=== PATIENT | female | born 1995 | race Caucasian/White ===

== ENCOUNTER 2023-01-03 02:02 | Outpatient (CLI) | payer MEDICAID, SELFPAY ==
[2023-01-03 02:36] VITALS: RESP 18
[2023-01-03 02:37] VITALS: BP 130/76; PULSE 104
[2023-01-03 02:41] VITALS: TEMP 35.8
[2023-01-03 02:46] VITALS: BMI 32.2
[2023-01-03] MEDS: acetaminophen 325 mg Tablet 650 MG PO (02:52)
[2023-01-03 03:11] VITALS: BP 137/82; PULSE 102
[2023-01-03 03:11] LABS: Amphetamines Screen Urine Positive (Negative); Barbiturates Screen Urine Negative (Negative); Benzodiazepines Screen Urine Negative (Negative); Cocaine Screen Urine Negative (Negative); Opiate Screen Urine Negative (Negative); PCP Screen Urine Negative (Negative); THC Screen Urine Negative (Negative)
[2023-01-03 03:12] LABS: Add Urine Culture? No; Bilirubin Urine Neg (Negative); Blood Urine Neg (Negative); Glucose Urine UA Norm (Normal); Ketones Urine Negative (Negative); Leukocyte Esterase Urine Negative (Negative); Mucus Urine 1+ /hpf; Nitrate Urine Negative (Negative); Protein Urine Neg (Negative); Squamous Epithelial Cell Urine 0-4 /hpf (0-5); Urine Appearance Clear (CLEAR); Urine Color Yellow (Yellow); Urobilinogen Urine Neg (Negative); pH Urine 6 (5-7)
[2023-01-03 03:23] VITALS: BP 140/86; PULSE 101
[2023-01-03 03:25] VITALS: BP 140/86; PULSE 101; RESP 16; TEMP 36.6
--- NOTE | 2023-01-03 03:31 | PC.NURSE ---
This nurse use the doppler to find FHT on pt, the FHT were 160 on 01/03/23 @0230. This nurse used doppler again to garbage pick up man FHT on 01/03/23 @ 0323 and they were 140.
== END 2023-01-03 03:25 | disposition home or self-care (01) ==
LOC: OPOB 02:30 → OBGYN 02:31
PROVIDERS: Visit Provider Family Medicine
DX: O26.899 Other specified pregnancy related conditions, unspecified trimester (principal); R10.9 Unspecified abdominal pain; Z3A.00 Weeks of gestation of pregnancy not specified
CPT/HCPCS: 80306; 81001; 99211

== ENCOUNTER 2023-02-23 01:37 | Outpatient (CLI) | payer MEDICAID, SELFPAY ==
[2023-02-23 01:37] VITALS: BMI 36.3
[2023-02-23 01:50] VITALS: BP 136/81; PULSE 108; TEMP 35.8
[2023-02-23 01:59] VITALS: RESP 17
[2023-02-23 02:11] VITALS: BP 138/82; PULSE 106
[2023-02-23 02:22] LABS: Amphetamines Screen Urine Negative (Negative); Barbiturates Screen Urine Negative (Negative); Benzodiazepines Screen Urine Negative (Negative); Cocaine Screen Urine Negative (Negative); Opiate Screen Urine Negative (Negative); PCP Screen Urine Negative (Negative); THC Screen Urine Negative (Negative)
--- NOTE | 2023-02-23 02:31 | USR_ITS ---
PROCEDURE INFORMATION: Exam: US , Limited Exam date and time: 02/23/2023 2:44 AM Age: 27 years old Clinical indication: Lmp or gestational age (in weeks): 30w 3d; Antepartum complications; Other: G3-p2, both prior pregnancies complicated by placenta previa, requiring . No vaginal bleeding at time of this exam, but patient admits to some spotting 2 weeks ago. ; Prior surgery; Surgery date: 6+ months; Additional info: Possible placenta previa LABS AND CLINICAL REPORTS: Last menstrual period start date: 07/24/2022 Gestational age (Established): 30 w 4 d Estimated due date (Established): 04/30/2023 TECHNIQUE: Imaging protocol: Real-time ultrasound of the maternal uterus with image documentation. Exam focused on the clinical indication. COMPARISON: No relevant prior studies available. FINDINGS: Single living fetus in cephalic position. heart activity documented by the technologist, 164 bpm. Posterior/fundal placenta. No definite placenta previa or other visible placental abnormality on the provided images. Amniotic fluid volume appears within normal limits for gestation, DARIEL 15.1 cm. Cervical length was estimated with transabdominal scanning, measuring approximately 3.2 cm. No definite cervical canal dilation or fluid on the provided images. measurements were not obtained at this time. Evaluation of anatomy was not performed at this time. No visible maternal adnexal abnormality. The urinary bladder was not completely evaluated/imaged at this time. US/US OB limited [id number] IMPRESSION: 1. Single living intrauterine fetus, details above. 2. Posterior/fundal placenta. 3. No definite placenta previa or other visible placental abnormality on the provided images. 4. Amniotic fluid volume appears within normal limits for gestation, DARIEL 15.1 cm. 5. Other details discussed above.
[2023-02-23 02:33] VITALS: BP 117/65; PULSE 105
[2023-02-23 02:40] LABS: Add Urine Culture? No; Bacteria Urine TRACE /hpf; Bilirubin Urine Neg (Negative); Blood Urine Neg (Negative); Glucose Urine UA Norm (Normal); Ketones Urine Negative (Negative); Leukocyte Esterase Urine Negative (Negative); Nitrate Urine Negative (Negative); Protein Urine Neg (Negative); RBC Urine 0-4 /hpf (0-2); Specific Gravity, Urine 1.015 (1.005-1.030); Squamous Epithelial Cell Urine 0-4 /hpf (0-5); Urine Appearance Clear (CLEAR); Urine Color Yellow (Yellow); Urobilinogen Urine Norm (Negative); WBC Urine 0-4 /hpf (0-5); pH Urine 7 (5-7)
[2023-02-23] MEDS: acetaminophen 500 mg Tablet 1000 MG PO (02:43)
[2023-02-23 03:23] VITALS: BP 123/76; PULSE 102
[2023-02-23 03:59] VITALS: BP 123/76; PULSE 102; RESP 16; TEMP 36.6
== END 2023-02-23 04:00 | disposition home or self-care (01) ==
LOC: OPOB 01:46 → OBGYN 03:24
PROVIDERS: Visit Provider Family Medicine
DX: O47.9 False labor, unspecified (principal); Z3A.30 30 weeks gestation of pregnancy
CPT/HCPCS: 59025; 76815; 80306; 81001; 99211

== ENCOUNTER 2023-03-13 20:05 | Outpatient (CLI) | payer MEDICAID, SELFPAY ==
[2023-03-13 20:10] VITALS: BMI 36.0
[2023-03-13 20:25] VITALS: BP 128/71; PULSE 102
[2023-03-13 20:30] VITALS: RESP 16; TEMP 36.2
[2023-03-13 20:45] VITALS: BP 122/72; PULSE 100
[2023-03-13 21:00] LABS: Blood Urine Neg (Negative); Glucose Urine UA Norm (Normal); Ketones Urine Negative (Negative); Nitrate Urine Negative (Negative); Protein Urine Neg (Negative); Specific Gravity, Urine 1.015 (1.005-1.030); Urine Appearance Clear (CLEAR); Urine Color Yellow (Yellow); pH Urine 7 (5-7)
[2023-03-13 21:01] LABS: Add Urine Culture? No; Bacteria Urine TRACE /hpf; Bilirubin Urine Neg (Negative); Leukocyte Esterase Urine Negative (Negative); Urobilinogen Urine Neg (Negative)
--- NOTE | 2023-03-13 21:20 | USR_ITS ---
PROCEDURE INFORMATION: Exam: US Biophysical Profile Without Non-Stress Test Exam date and time: 03/13/2023 9:36 PM Age: 27 years old Clinical indication: Other: Mcleod moved vigorously. Patient is seen for n+v, no vag bleed. ; Additional info: Nausea and vomiting TECHNIQUE: Imaging protocol: US biophysical profile without non-stress testing. COMPARISON: US OB limited [id number] 02/23/2023 2:44 AM FINDINGS: heart rate: 129 bpm presentation: Cephalic Placenta: Fundal grade 1 placenta. No findings of placenta previa. Amniotic fluid: Amniotic fluid volume is normal. Amniotic fluid index: DARIEL is 14 cm. BIOPHYSICAL PROFILE: breathing movement (BPP): 2/2 body movement (BPP): 2/2 tone (BPP): 2/2 Amniotic fluid (BPP): 2/2 Biophysical profile score (BPP): 8/8 MATERNAL ANATOMY: Cervix: Cervical length measures 4.4 cm. US/US OB BPP wo NST [id number] IMPRESSION: Biophysical profile score is 8/8.
[2023-03-13 21:27] VITALS: BP 132/78; PULSE 102
[2023-03-13 22:21] VITALS: BP 132/78; PULSE 102; RESP 16; TEMP 36.2
== END 2023-03-13 22:21 | disposition home or self-care (01) ==
LOC: OPOB 20:20 → OBGYN 20:23
PROVIDERS: Visit Provider Obstetrics & Gynecology
DX: O46.90 Antepartum hemorrhage, unspecified, unspecified trimester (principal); O26.899 Other specified pregnancy related conditions, unspecified trimester; R11.10 Vomiting, unspecified; Z3A.00 Weeks of gestation of pregnancy not specified
CPT/HCPCS: 59025; 76819; 81001; 99211

== ENCOUNTER 2023-04-09 21:32 | Outpatient (CLI) | payer MEDICAID, SELFPAY ==
[2023-04-09] VITALS (11 sets, daily range): BP systolic 133–169; BP diastolic 80–95; PULSE 90–109; RESP 15–16; TEMP 35.9; BMI 35.6
[2023-04-09 22:30] LABS: Add Urine Microscopic? NO; Charge for UA Resulting for Rev
[2023-04-09 22:32] LABS: Basophils % 0.4 %; Eosinophils # 0.2 10^3/uL (0.0-0.8); Eosinophils % 1.4 %; Hematocrit 37.7 % (37.0-47.0); Hemoglobin 12.2 g/dL (11.5-15.3); Lymphocytes # 2.3 10^3/uL (0.8-4.8); Lymphocytes % 20.7 %; Mean Corpuscular HGB Conc 32.4 g/dL (30.0-36.0); Mean Corpuscular Hemoglobin 28.3 pg (28.0-34.0); Mean Corpuscular Volume 87.5 fl (81-99); Mean Platelet Volume 10.4 fL (7.4-10.4); Monocytes # 0.8 10^3/uL (0.2-0.9); Monocytes % 7.2 %; Neutrophils # 7.48 10^3/uL (1.8-7.7); Neutrophils % 67.9 %; Nucleated Red Blood Cells % 0 %; Platelet Count 175 10^3/cmm (130-400); Red Blood Count 4.31 10^6/uL (4.1-5.3); Red Cell Distribution Width 15.2 % (12.1-15.1)
[2023-04-09 22:41] LABS: Protein Urine Neg (Negative); Urine Appearance Clear (CLEAR); Urine Color Yellow (Yellow); pH Urine 7 (5-7)
[2023-04-09 22:42] LABS: Bilirubin Urine Neg (Negative); Blood Urine Neg (Negative); Glucose Urine UA Norm (Normal); Ketones Urine Negative (Negative); Leukocyte Esterase Urine Negative (Negative); Nitrate Urine Negative (Negative); Urobilinogen Urine Norm (Negative)
[2023-04-09 22:55] LABS: Alanine Aminotransferase 11 U/L (0-33); Albumin Level 3.4 g/dL (3.5-5.2); Alkaline Phosphatase 140 U/L (35-105); Anion Gap 16.1 (5-19); Aspartate Amino Transferase 21 U/L (0-32); Blood Urea Nitrogen 5 mg/dL (6-20); Calcium 8.9 mg/dL (8.5-10.5); Carbon Dioxide 22 mmol/L (22-29); Chloride 101 mmol/L (98-107); Globulin 3.3 g/dL (1.3-4.6); Glomerular Filtration Rate 190.1 mL/min (90-130); Glucose 85 mg/dL (65-115); Osmolality Calculated 277 mOsm/kg (285-295); Potassium 4.1 mmol/L (3.5-5.1); Sodium 135 mmol/L (136-145); Total Bilirubin 0.2 mg/dL (0.15-1.2); Total Protein 6.7 g/dL (6.6-8.7); Uric Acid 4.6 mg/dL (2.4-5.7)
[2023-04-09 23:01] LABS: Urine Creatinine 61 mg/dL (28-217); Urine Protein Random 7 mg/dL
[2023-04-09 23:05] LABS: Amphetamines Screen Urine Negative (Negative); Barbiturates Screen Urine Negative (Negative); Benzodiazepines Screen Urine Negative (Negative); Cocaine Screen Urine Negative (Negative); Opiate Screen Urine Negative (Negative); PCP Screen Urine Negative (Negative); THC Screen Urine Negative (Negative)
[2023-04-09 23:06] LABS: UPRO/UCREAT Ratio 0.11 mg/mg CR
== END 2023-04-09 23:27 | disposition home or self-care (01) ==
LOC: OPOB 21:33 → OBGYN 21:34
PROVIDERS: Visit Provider Family Medicine
DX: O47.9 False labor, unspecified (principal); Z3A.00 Weeks of gestation of pregnancy not specified
CPT/HCPCS: 36415; 59025; 80053; 80306; 81003; 82570; 84156; 84550; 85025; 99211

== ENCOUNTER 2023-04-21 21:45 | Outpatient (CLI) | payer MEDICAID, SELFPAY ==
[2023-04-21 21:55] VITALS: BMI 37.0
[2023-04-21 22:14] VITALS: TEMP 35.9
[2023-04-21 22:15] VITALS: BP 134/87; PULSE 93
[2023-04-21 22:40] VITALS: BP 134/87; PULSE 93; RESP 16; TEMP 36.1
[2023-04-21 23:33] LABS: Nitrazine Paper, PH Negative
== END 2023-04-21 22:45 | disposition home or self-care (01) ==
LOC: OPOB 21:46 → OBGYN 21:47
PROVIDERS: Visit Provider Obstetrics & Gynecology
DX: O26.899 Other specified pregnancy related conditions, unspecified trimester (principal); R10.9 Unspecified abdominal pain; Z3A.00 Weeks of gestation of pregnancy not specified
CPT/HCPCS: 59025; 83986; 99211

== ENCOUNTER → 2023-04-24 13:20 | Outpatient (BNVA) | payer MEDICAID, SELFPAY | PROVIDERS: Visit Provider Obstetrics & Gynecology | DX: Z34.90 Encounter for supervision of normal pregnancy, unspecified, unspecified trimester (principal); Z3A.00 Weeks of gestation of pregnancy not specified | CPT/HCPCS: 81000; 82950 ==

== ENCOUNTER 2023-04-27 10:00 | Outpatient (CLI) | payer MEDICAID, SELFPAY ==
[2023-04-27] VITALS (10 sets, daily range): BP systolic 128–177; BP diastolic 80–105; PULSE 89–101; RESP 16; TEMP 36.8; BMI 38.0
[2023-04-27 10:49] LABS: Glucose Point of Care 86 mg/dL (70-110)
== END 2023-04-27 11:50 | disposition home or self-care (01) ==
LOC: OPOB 10:00 → OBGYN 10:01
PROVIDERS: Visit Provider Obstetrics & Gynecology
DX: Z36.9 Encounter for antenatal screening, unspecified (principal)
CPT/HCPCS: 36416; 59025; 82962; 99211

== ENCOUNTER 2023-04-28 08:23 | Inpatient (IN) | payer MEDICAID, SELFPAY ==
[2023-04-28] VITALS (28 sets, daily range): BP systolic 104–175; BP diastolic 47–93; PULSE 62–103; RESP 15–17; TEMP 35.6–36.5; O2SAT 95–98; BMI 38.0
--- NOTE | 2023-04-28 10:33 | ANES.PREANE2 ---
Pre-Anesthetic Assessment Height/Weight: Height 1.6 m Temp Pulse BP 96.8 F L 103 H 175/93 04/28/23 09:15 04/28/23 09:16 04/28/23 09:16 Preop Diagnosis: c section Operation Date: 04/28/23 10:00 Proposed Procedures p Section Repeat(Not Applicable) - Charles Gilmore MD Familial anesthetic complications: none Was Beta Ugo taken within 24 hours: N/A Was Clonidine taken within 24 hours: N/A Last Intake: 23:00 Social Tobacco and No alcohol 2ppd pack(s) per day 10+ pack years Exam alert, oriented x 3, clear to auscultation bilaterally and regular rate & rhythm Airway Submandibular: within normal limits Cervical ROM: within normal limits Mallampati: Class II Dentition: full Pulmonary None reported CV/HEM None reported None reported Hepatic None reported GI Gastroesophageal Reflux Disease (with ) Metabolic None reported Musc/skel None reported Neuropsych Syncope (once early in ) and None reported Anesthetic Plan ASA status: 2 Anesthesia: Regional (specify below) Risk of > 500 ml blood loss (7ml/kg in children): Yes, adequate IV access and fluids planned Medications/Allergies Home Medications Medication Instructions Recorded Confirmed Last Taken Type stwyickn-kdn-Sb-FA 1 mg 1 tab PO DAILY 04/09/23 04/24/23 Unknown History tablet Allergies Allergy/AdvReac Type Severity Reaction Status Date / Time No Known Allergies Allergy Verified 04/24/23 13:13 [facility] Anesthesia Medical History (Updated 04/26/23 @ 00:02 by Charles Gilmore MD) delivery delivered Family History (Updated 04/24/23 @ 13:00 by Katey Rojas) Denies family history of Colon cancer Ovarian cancer Diabetes Heart disease Hyperlipidemia Breast cancer Hypertension Uterine cancer Thyroid disease Stroke Data Anesthesia 04/28/23 10:55 Cardiac Studies: No Data to Display
[2023-04-28 11:08] LABS: Basophils # 0.1 10^3/uL (0.0-0.1); Basophils % 0.5 %; Eosinophils # 0.2 10^3/uL (0.0-0.8); Eosinophils % 2.1 %; Hematocrit 38.3 % (36-47); Lymphocytes # 1.8 10^3/uL (0.8-4.8); Lymphocytes % 19.5 %; Mean Corpuscular HGB Conc 33.4 g/dL (30-55); Mean Corpuscular Hemoglobin 29.1 pg (27-33); Mean Platelet Volume 10.3 fL (7.4-10.4); Monocytes # 0.5 10^3/uL (0.2-0.9); Monocytes % 5.3 %; Neutrophils % 71.6 %; Nucleated Red Blood Cells % 0 %; Platelet Count 169 10^3/cmm (157-399); Red Cell Distribution Width 15.2 % (12.1-15.1); White Blood Count 9.22 10^3/uL (3.29-11.43)
[2023-04-28 11:31] LABS: Rubella IgG 76.4 IU/mL (0.0-10.0)
[2023-04-28] MEDS: citric acid-sodium citrate 30 mL UDC PO (11:35)
[2023-04-28] MEDS: famotidine 20 mg/2 mL INJ IVP (11:35)
[2023-04-28] MEDS: lactated ringers 1,000 ML 999 ML IV (11:36)
[2023-04-28] MEDS: metoclopramide 5 mg/mL SDV 2 mL 10 MG IVP (11:36)
[2023-04-28] MEDS: ceFAZolin 2,000 MG in sodium chloride 0.9% (plus) 50 ML 100 MG IV (11:36)
[2023-04-28 12:02] LABS: HIV 1 & 2 Antibody Non-Reactive (Non-Reactiv); HIV 1 & 2 Antigen Non-Reactive (Non-Reactiv)
[2023-04-28 12:06] LABS: Hepatitis C Virus Antibody Non-Reactive (Nonreactive)
[2023-04-28 12:08] LABS: Hepatitis B Surface Antigen Non-Reactive (Nonreactive)
[2023-04-28 12:12] LABS: Rapid Plasma Reagin Syphilis Nonreactive (Nonreactive)
--- NOTE | 2023-04-28 14:23 | PM.OBGYHP ---
Providers/Chief Complaint Admitting Physician: Charles Gilmore MD Primary PAID SEARCH MARKETING STRATEGIST: Charles Gilmore MD [facility] PAID SEARCH MARKETING STRATEGIST History of Present Illness Quin Mcknight is a 27 year old female 27 y.o. EDC April 30, 2023 At 39 w 5 d Patient had early care at [place], [place] Above EDC based on an early ultrasound, report obtained by us by phone with [facility] staff This is patient?s first visit here Has had very sporadic care Never had 1-h glucola States has not had any complications No c/o + active movements h/o c-sections x two now admitted for repeat NKDA Medications/Allergies Home Medications Medication Instructions Recorded Confirmed Last Taken Type usxljkop-ooi-Wh-FA 1 mg 1 tab PO DAILY 04/09/23 04/24/23 Unknown History tablet Allergies Allergy/AdvReac Type Severity Reaction Status Date / Time No Known Allergies Allergy Verified 04/24/23 13:13 PFSH PAID SEARCH MARKETING STRATEGIST PFSH: Medical History (Updated 04/26/23 @ 00:02 by Charles Gilmore MD) delivery delivered Family History (Updated 04/24/23 @ 13:00 by Katey Rojas) Denies family history of Colon cancer Ovarian cancer Diabetes Heart disease Hyperlipidemia Breast cancer Hypertension Uterine cancer Thyroid disease Stroke History History History 3 Term 0 2 Miscarriages/Ectopic 0 Living Children 2 Care MARTHA Calculator Estimated Delivery Date Method Current WG Current Estimate 04/30/23 Ultrasound #1 39w 5d Vitals/I&O/Wt Last Vital Signs Temp 96.8 F L 04/28/23 09:15 Pulse 103 H 04/28/23 09:16 BP 175/93 04/28/23 09:16 Physical Exam Narrative: Weight 210 lbs; 5?3? BP 175 / 93 FH 37 cm FHTs normal Ext: no edema External monitor: heart tracing good variability, + accelerations Data 04/28/23 10:55 A&P Assessment and plan (1) Supervision of other normal : 39 w 5 d (2) Late care: (3) Previous section: previous c-sections x two plan repeat c-s today Attestations Medical Necessity Statement*: patient at 39 w 5 d with two previous c-s, admitted for repeat Coding Level of Care Code Acute Code for Chg Fwd Diagnoses Supervision of other normal Z34.80 Late care O09.30 Previous section Z98.891 Time Spent (min) 60
--- NOTE | 2023-04-28 14:30 | P.OP_ITS ---
Operative Report Date of procedure: April 28, 2023 Pre-op diagnosis: 39 w 5 d gestation Previous x two For repeat Post-op diagnosis: same Post-op diagnosis: Vigorous male infant Normal placenta and cord Normal uterus, tubes, and ovaries Procedure done: Repeat low-transverse Specimens removed/disposition: placenta, discarded Surgeon: Charles Gilmore MD Anesthesia: Other Estimated blood loss (mL): 500 Complications: none Condition: stable Disposition: PACU Brief History: Patient with previous c-sections x two, scheduled for repeat . Procedure: Informed consent signed. Patient was taken to the operating room, placed supine in the left lateral tilt position. Spinal anesthesia and a Ta catheter were already placed. The abdomen was prepped and draped in the usual sterile fashion. A Pfannenstiel incision was made over an old scar and carried down through skin and subcutaneous tissue and fascia. The fascial incision was extended laterally with Green scissors. The fascia was from the underlying rectus muscles. The rectus muscles were split in the midline. The peritoneum was entered bluntly avoiding underlying organs. A bladder flap was created. A low transverse uterine incision was made and extended laterally bluntly avoiding the uterine vessels. Clear amniotic fluid was seen. The baby was delivered in cephalic presentation atraumatically. The baby was suctioned. The cord was clamped and cut and the baby was handed to an awaiting network operations analyst. Cord blood was obtained. The placenta was manually removed intact. The uterus was exteriorized. The uterine cavity was bluntly curetted with wet laps. The uterine incision was then closed with a continuous interlocking stitich of O chromic. Adequate hemostasis was seen. No bleeding was seen. The uterine incision was again inspected and found to have good hemostasis. The uterus was returned into the abdominal cavity. The fascia was then closed with a continuous stitch of O-Vicryl. Additional interrupted stitches of O-Vicryl were used for fascial closure. The subcutaneous tissue was irrigated and inspected for hemostasis. The skin was then reapproximated using Insorb tania. Postoperative condition stable Disposition to recovery room Estimated blood loss 500 cc, no replacement Sponge, needle, and instrument counts were correct x two There were no complications
--- NOTE | 2023-04-28 14:57 | ANE.PACU2 ---
Inpatient post-anesthesia follow up: Airway intact: Yes Vital signs: Temperature 96.1 F Pulse Rate 71 Respiratory Rate Blood Pressure 119/72 Pulse Oximetry Oxygen Delivery Me thod Oxygen Flow Rate Fraction of Inspir ed Oxygen Hydration adequate: Yes Nausea and vomiting: No Pain level: 2 Mental status: Baseline
[2023-04-28] MEDS: dextrose 5%-lactated ringers 1,000 ML 125 ML IV ×2 (16:00→23:56)
[2023-04-28] MEDS: HYDROcodone-acetaminophen 5-325 mg Tablet PO (18:40)
[2023-04-28] MEDS: docusate sodium 100 mg Capsule PO (19:55)
[2023-04-28] MEDS: ferrous sulfate EC 325 mg Tablet PO (19:55)
[2023-04-28] MEDS: nicotine 21 mg Patch 1 PATCH TRANSDERMA (19:56)
[2023-04-28] MEDS: ketorolac 30 mg/mL INJ IVP (20:12)
[2023-04-29 05:00] VITALS: BP 137/91; PULSE 83; RESP 16; TEMP 36.8; O2SAT 97
[2023-04-29 06:33] LABS: Hematocrit 34.8 % (36-47); Mean Corpuscular Hemoglobin 28.9 pg (27-33); Mean Corpuscular Volume 87.4 fl (85-98); Mean Platelet Volume 11.5 fL (7.4-10.4); Platelet Count 186 10^3/cmm (157-399); Red Blood Count 3.98 10^6/uL (3.85-5.65); Red Cell Distribution Width 15.1 % (12.1-15.1); White Blood Count 8.82 10^3/uL (3.29-11.43)
[2023-04-29 10:00] VITALS: BP 157/62; PULSE 90; TEMP 36.7
--- NOTE | 2023-04-29 10:06 | PM.PN ---
Subjective Subjective: 27-year-old G3, P3 s/p repeat section at 39.5 weeks gestation. Patient is doing well denies any problems with nausea vomiting, headaches, dizziness shortness of breath or chest pain. Patient has been up ambulating, tolerating regular diet and voiding. She has passed flatus but no stool yet. Her pain has been tolerated well with occasional [place]. Vitals/I&O/Wt Last Vital Signs Temp 98.3 F 04/29/23 05:00 Pulse 83 04/29/23 05:00 Resp 16 04/29/23 05:00 BP 137/91 04/29/23 05:00 Pulse Ox 97 04/29/23 05:00 O2 Del Method Room Air 04/29/23 05:00 04/28/23 04/29/23 04/29/23 22:59 06:59 14:59 Intake Total 991.667 / 2591.667 Output Total 150 / 1300 550 / 1850 Balance -150 / 300 441.667 / 741.667 Weight last 48 hrs Weight 97.522 kg Physical Exam Back/Pelvis: OTHER: Abdomen is obese?soft, fundus below umbilicus. Surgical bandage removed, incision dry with Steri-Strips. Lochia?light Extremity: NARRATIVE EXTREMITY EXAM: Generalized edema, nonpitting Negative Homans' sign Urinary Catheter Management: Ta: Cath Placed During This Visit: yes Reason for Continuing Indwelling Catheter: Required Immobilization for Trauma or Surgery or Anesthesia Urinary Catheter Date of Insertion: 04/28/23 Urinary Catheter Time of Insertion: 13:00 Data 04/29/23 03:05 A&P Assessment and plan (1) Previous section: (2) Late care: (3) Supervision of other normal : Plan A. S/p repeat section at 39.5 weeks P. Continue present postoperative care Attestations Medical Necessity Statement*: Postop day 1 s/p repeat section Coding Level of Care Code Acute Code for Chg Fwd Diagnoses Previous section Z98.891 Late care O09.30 Supervision of other normal Z34.80
[2023-04-29] MEDS: prenatal vitamin Capsule 1 CAP PO (10:31)
[2023-04-29] MEDS: docusate sodium 100 mg Capsule PO ×2 (10:31→16:35)
[2023-04-29] MEDS: ibuprofen 800 mg tablet PO ×3 (10:31→20:37)
[2023-04-29] MEDS: ferrous sulfate EC 325 mg Tablet PO (16:36)
[2023-04-29 16:37] VITALS: BP 158/101; PULSE 89; TEMP 36.1
[2023-04-29 16:53] VITALS: BP 155/97; PULSE 91
[2023-04-29] MEDS: HYDROcodone-acetaminophen 5-325 mg Tablet PO ×2 (18:46→23:22)
[2023-04-29 22:47] VITALS: BP 132/78; PULSE 84; TEMP 36.7
[2023-04-30] MEDS: HYDROcodone-acetaminophen 5-325 mg Tablet PO ×2 (04:39→12:00)
[2023-04-30 04:41] VITALS: TEMP 35.7
[2023-04-30 04:42] VITALS: BP 164/92; PULSE 77
--- NOTE | 2023-04-30 04:53 | PC.NURSE ---
pt found asleep holding baby during this rounding, reeducated on safe sleep and baby placed in crib. pt verbalized understanding
[2023-04-30 05:10] VITALS: BP 127/83
--- NOTE | 2023-04-30 07:45 | PM.OBGYDC ---
Discharge Providers RITUAL CIRCUMCISER Date of Admission: 04/28/23 08: Date of Discharge: 04/30/23 Attending Provider at Admission: Charles Gilmore MD Attending Provider at Discharge: Charles Gilmore MD Diagnoses at Discharge Discharge Diagnosis (1) Previous section: Status: Acute (2) Late care: Status: Acute (3) Supervision of other normal : Status: Acute Reason for Visit Reason for Visit: Brief History: 27-year-old female G6, P3 delivered via repeat . Patient had [address] Gilmore in which repeat section date was scheduled. Patient denies any complaints of headaches blurred vision shortness of breath or chest pain. She is breast-feeding and supplementing with bottle as well. Patient is ambulating, voiding and has had several stools. She is tolerating a regular diet as well. Vital signs have remained stable and afebrile Her abdomen is soft, fundus firm she reports bloody discharge is light. Abdomen?incision intact with Steri-Strips noted. Fundus below the umbilicus Extremities?no edema Hospital Course Hospital Course S/p repeat section course unremarkable. Information Peripartum Data: Delivery Method: Physical Exam Back/Pelvis: OTHER: See above Urinary Catheter Management: Ta: Cath Placed During This Visit: yes, but has since been removed by the nurse Reason for Continuing Indwelling Catheter: Required Immobilization for Trauma or Surgery or Anesthesia Urinary Catheter Date of Insertion: 04/28/23 Urinary Catheter Time of Insertion: 13:00 Date Urinary Catheter Removed: 04/29/23 Time Urinary Catheter Discontinued: 08:00 History History History 3 Term 0 2 Miscarriages/Ectopic 0 Living Children 2 Discharge Data Studies Completed and Pending Pending at discharge Category Date Time Status Chlamydia/Gonorrh RNA,TMA URO Routine Lab 04/28/23 11:10 Received Laboratory Results WBC 8.82 10^3/uL (3.29-11.43) 04/29/23 03:05 RBC 3.98 10^6/uL (3.85-5.65) 04/29/23 03:05 Hgb 11.50 g/dL (11.27-16.99) 04/29/23 03:05 Hct 34.8 % (36-47) L 04/29/23 03:05 MCV 87.4 fl (85-98) 04/29/23 03:05 MCH 28.9 pg (27-33) 04/29/23 03:05 MCHC 33.0 g/dL (30-55) 04/29/23 03:05 RDW 15.1 % (12.1-15.1) 04/29/23 03:05 Plt Count 186 10^3/cmm (157-399) 04/29/23 03:05 MPV 11.5 fL (7.4-10.4) H 04/29/23 03:05 Neut % (Auto) 71.6 % 04/28/23 10:55 Lymph % (Auto) 19.5 % 04/28/23 10:55 Williamson % (Auto) 5.3 % 04/28/23 10:55 Eos % (Auto) 2.1 % 04/28/23 10:55 Baso % (Auto) 0.5 % 04/28/23 10:55 Neut # (Auto) 6.60 10^3/uL (1.8-7.7) 04/28/23 10:55 Lymph # (Auto) 1.8 10^3/uL (0.8-4.8) 04/28/23 10:55 Williamson # (Auto) 0.5 10^3/uL (0.2-0.9) 04/28/23 10:55 Eos # (Auto) 0.2 10^3/uL (0.0-0.8) 04/28/23 10:55 Baso # (Auto) 0.1 10^3/uL (0.0-0.1) 04/28/23 10:55 Nucleated RBC % (auto) 0 % 04/28/23 10:55 Nucleated RBCs # 0.0 /100WBC 04/28/23 10:55 RPR Nonreactive (Nonreactive) 04/28/23 10:55 Hep Bs Antigen Non-reactive (Nonreactive) 04/28/23 10:55 Hepatitis C Antibody Non-reactive (Nonreactive) 04/28/23 10:55 HIV 1&2 Ab & HIV 1 Ag Non-reactive (Non-Reactiv) 04/28/23 10:55 HIV 1&2 Antibody Non-reactive (Non-Reactiv) 04/28/23 10:55 Rubella IgG Antibody 76.4 IU/mL (0.0-10.0) H 08/25/23 10:55 Blood Type B Positive 04/28/23 10:55 Rho(D) Type Positive 04/28/23 10:55 Antibody Screen Negative 04/28/23 10:55 Procedures Performed Repeat low transverse section Vitals Last Vital Signs Temp 96.3 F L 04/30/23 04:41 Pulse 77 04/30/23 04:42 Resp 16 04/29/23 05:00 BP 127/83 04/30/23 05:10 Pulse Ox 97 04/29/23 05:00 O2 Del Method Room Air 04/29/23 10:00 Discharge Plan Discharge Patient Disposition: Home Condition: Stable Prescriptions: New hydrocodone-acetaminophen 5-325 mg Tablet 1 - 2 tab PO 3XD PRN (Reason: Moderate To Severe Pain) Qty: 8 0RF Continued uvvxlwlf-jdv-Pp-FA 1 mg Tablet 1 tab PO DAILY Discharge Orders: Discharge Order (Routine); Ordered 04/30/23 Ordered By: Claudia De Jesus Patient Instructions: Depression (DC), Bleeding (DC), Preeclampsia and Eclampsia After Delivery (GEN), OB [facility], OB Discharge Report, OB Food/Drug Interaction Guide, Opioid Safety, OB Home Care Assessment: 1. S/p repeat low transverse section Plan of Treatment: 1. Discharge to home 2.. Follow-up in 2 weeks 3. Plan reviewed with patient, to include no heavy lifting pushing or pulling no sexual intercourse x6 weeks. Patient is to continue her vitamins and iron. Plan for taking [place] reviewed and may supplement if needed with ibuprofen. Discharge Attestations RITUAL CIRCUMCISER Time Spent in Discharge Care*: less than 30 min Coding Level of Care Code Acute Code for Chg Fwd Diagnoses Previous section Z98.891 Late care O09.30 Supervision of other normal Z34.80
[2023-04-30] MEDS: prenatal vitamin Capsule 1 CAP PO (10:20)
[2023-04-30] MEDS: ferrous sulfate EC 325 mg Tablet PO (10:20)
[2023-04-30] MEDS: docusate sodium 100 mg Capsule PO (10:20)
[2023-04-30] MEDS: ibuprofen 800 mg tablet PO (10:20)
[2023-04-30 10:22] VITALS: TEMP 35.8
[2023-04-30 10:23] VITALS: BP 131/90; PULSE 96
[2023-04-30 12:10] VITALS: BP 131/90; PULSE 96; RESP 16; TEMP 36.6
[2023-04-30 19:29] LABS: Chlamydia Trachomatis RNA TMA NOT DETECTED (NOT DETECTED); Neisseria Gonorrhoeae RNA, TMA NOT DETECTED (NOT DETECTED)
== END 2023-04-30 12:20 | disposition home or self-care (01) | DRG 788 ==
PROVIDERS: Admitting Provider Obstetrics & Gynecology; Visit Provider Obstetrics & Gynecology
PROC: 10D00Z1 Extraction of Products of Conception, Low, Open Approach (ICD-10-PCS; CPT 59514; principal; 2023-04-28 10:00)
DX: O34.211 Maternal care for low transverse scar from previous cesarean delivery (principal); N85.8 Other specified noninflammatory disorders of uterus; O99.334 Smoking (tobacco) complicating childbirth; F17.210 Nicotine dependence, cigarettes, uncomplicated; Z3A.39 39 weeks gestation of pregnancy; Z37.0 Single live birth
CPT/HCPCS: 36415; 51702; 59025; 59409; 85025; 85027; 86592; 86762; 86803; 86850; 86900; 87340; 87491; 87591; 87806; 96374; 96376; J0690; J1885; J2274; J2405; J2765; J3490; J7120; J7121

== ENCOUNTER 2023-10-26 18:03 | Emergency (ER) | payer MEDICAID, SELFPAY ==
[2023-10-26 18:10] VITALS: BP 114/80; PULSE 78; RESP 16; TEMP 36.7; O2SAT 97; BMI 30.9
--- NOTE | 2023-10-26 18:26 | W.ED.ABDPA2 ---
HPI - Abdominal Pain General: Chief Complaint: Abdominal Pain Stated Complaint: Pain in upper right abd Time Seen by Provider: 10/26/23 18:21 History of Present Illness: Patient presents with right upper quadrant and epigastric abdominal pain. She describes these as sharp and stabbing and episodic. They come and go on her own or if nothing the patient can do to make it better or worse. Is been going on for about 5 months and the patient had her last child. Before then she did not have this pain. When the pain is there she gets mildly nauseous but eating or drinking does not affect it. The only surgery the patient had is C-sections. Patient still has her gallbladder and her appendix. Related Data: Date of Last Menstrual Period: 10/18/23 Review of Systems General: Reports: 10 or more systems reviewed and unremarkable except in HPI and below PFSH ED PFSH: Medical History delivery delivered Late care Family History Denies family history of Colon cancer Ovarian cancer Diabetes Heart disease Hyperlipidemia Breast cancer Hypertension Uterine cancer Thyroid disease Stroke Female Reproductive History: Date of last menstrual period: 10/18/23 Physical Exam Const: COMMON NORMALS: no acute distress, average body habitus, patient oriented x3, no limitations, healthy appearing, alert and well nourished HENMT: COMMON NORMALS: normocephalic, atraumatic, hearing grossly normal bilaterally, external ears normal, Normal external nose present, moist oral mucous membranes and oropharynx normal HEAD & SCALP: normocephalic and atraumatic NOSE: Normal external nose present EXTERNAL EAR: Yes external ears normal Neck/C-Spine: COMMON NORMALS: no JVD Chest: COMMONS NORMALS: normal inspection of the chest and normal palpation of entire chest wall Resp: COMMON NORMALS: normal respiratory effort, No retractions, No use of accessory muscles and clear to auscultation bilaterally AUSCULTATION: clear to auscultation bilaterally Cardio: COMMON NORMALS: no JVD, regular rate, regular rhythm, S1 normal heart sound present, S2 normal heart sound present, No gallops present (Cardio), No clicks present (Cardio), No murmurs present (Cardio) and No rub (Cardio) RATE: regular rate RHYTHM: regular rhythm HEART SOUNDS: S1 normal heart sound present and S2 normal heart sound present GI: COMMON NORMALS: Normal to inspection, nondistended, normoactive bowel sounds present, Soft to palpation, No hepatosplenomegaly present and no masses; negative for non-tender (Tender over epigastric area and right upper quadrant) PALPATION: Yes Soft to palpation and Yes No hepatosplenomegaly present Neuro: COMMON NORMALS: patient oriented x3 SENSORIUM/ORIENTATION: Yes alert Course Vital Signs: Vital signs: Vital Signs Temperature 98.0 F 10/26/23 18:10 Pulse Rate 80 10/26/23 21:31 Respiratory Rate 16 10/26/23 18:10 Blood Pressure 137/93 10/26/23 21:31 Pulse Oximetry 97 10/26/23 21:31 Oxygen Delivery Me thod Room Air 10/26/23 18:10 MDM - Abdominal Pain Medical Decision Making Patient's physical exam revealed tenderness with palpation over epigastric and right upper quadrant areas. Lab work was essentially unremarkable, CT scan did not show any gallbladder or epigastric abnormalities however did show a fat-containing supraumbilical hernia but this is not where the patient is tender. All these results was discussed with the patient and their family. Patient be referred back to her PCP for further evaluation and treatment which may include referral to general surgeon and/or HIDA scan. Differential Diagnosis Likely abdominal pain; Unlikely acute appendicitis, calculus of kidney, constipation, diverticulitis, endometriosis, gastroenteritis, pancreatitis or small bowel obstruction Medical Records I reviewed the patient's medical records. Lab Data I reviewed the patient's lab results. 10/26/23 19:13 10/26/23 19:13 Labs/Radiology: Radiology Impressions Abdomen/Pelvis CT 10/26/23 20:23 IMPRESSION: Fat containing supraumbilical ventral abdominal wall hernia with 1.5 x 1.3 cm neck which demonstrates mild associated inflammatory change. Laboratory Results WBC 8.08 10^3/uL (3.29-11.43) 10/26/23 19:13 RBC 4.95 10^6/uL (3.85-5.65) 10/26/23 19:13 Hgb 14.70 g/dL (11.27-16.99) 10/26/23 19:13 Hct 44.1 % (36-47) 10/26/23 19:13 MCV 89.1 fl (85-98) 10/26/23 19:13 MCH 29.7 pg (27-33) 10/26/23 19:13 MCHC 33.3 g/dL (30-55) 10/26/23 19:13 RDW 12.0 % (12.1-15.1) L 10/26/23 19:13 Plt Count 260 10^3/cmm (157-399) 10/26/23 19:13 MPV 10.4 fL (7.4-10.4) 10/26/23 19:13 Neut % (Auto) 63.0 % 10/26/23 19:13 Lymph % (Auto) 28.2 % 10/26/23 19:13 [place] % (Auto) 5.1 % 10/26/23 19:13 Eos % (Auto) 2.7 % 10/26/23 19:13 Baso % (Auto) 0.5 % 10/26/23 19:13 Neut # (Auto) 5.09 10^3/uL (1.8-7.7) 10/26/23 19:13 Lymph # (Auto) 2.3 10^3/uL (0.8-4.8) 10/26/23 19:13 [place] # (Auto) 0.4 10^3/uL (0.2-0.9) 10/26/23 19:13 Eos # (Auto) 0.2 10^3/uL (0.0-0.8) 10/26/23 19:13 Baso # (Auto) 0.0 10^3/uL (0.0-0.1) 10/26/23 19:13 Nucleated RBC % (auto) 0 % 10/26/23 19:13 Nucleated RBCs # 0.0 /100WBC 10/26/23 19:13 Sodium 137 mmol/L (136-145) 10/26/23 19:13 Potassium 4.2 mmol/L (3.5-5.1) 10/26/23 19:13 Chloride 103 mmol/L (98-107) 10/26/23 19:13 Carbon Dioxide 24 mmol/L (22-29) 10/26/23 19:13 Anion Gap 14.2 (5-19) 10/26/23 19:13 BUN 12 mg/dL (6-20) 10/26/23 19:13 Creatinine 0.6 mg/dL (0.5-0.9) 10/26/23 19:13 GFR Calculation 118.2 mL/min (90-130) 10/26/23 19:13 Glucose 81 mg/dL (65-115) 10/26/23 19:13 Calculated Osmolality 283 mOsm/kg (285-295) L 10/26/23 19:13 Calcium 9.5 mg/dL (8.5-10.5) 10/26/23 19:13 Total Bilirubin 0.3 mg/dL (0.15-1.2) 10/26/23 19:13 AST 12 U/L (0-32) 10/26/23 19:13 ALT 11 U/L (0-33) 10/26/23 19:13 Alkaline Phosphatase 71 U/L (35-105) 10/26/23 19:13 Total Protein 7.6 g/dL (6.6-8.7) 10/26/23 19:13 Albumin 4.5 g/dL (3.5-5.2) 10/26/23 19:13 Globulin 3.1 g/dL (1.3-4.6) 10/26/23 19:13 Lipase 36 U/L (13-60) 10/26/23 19:13 HCG, Qual Negative (Negative) 10/26/23 19:13 Urine Color Straw (Yellow) 10/26/23 20:40 Urine Appearance Clear (CLEAR) 10/26/23 20:40 Urine pH 6 (5-7) 10/26/23 20:40 Ur Specific Center 1.010 (1.005-1.030) 10/26/23 20:40 Urine Protein Neg (Negative) 10/26/23 20:40 Urine Glucose (UA) Norm (Normal) 10/26/23 20:40 Urine Ketones Negative (Negative) 10/26/23 20:40 Urine Blood Neg (Negative) 10/26/23 20:40 Urine Nitrate Negative (Negative) 10/26/23 20:40 Urine Bilirubin Neg (Negative) 10/26/23 20:40 Urine Urobilinogen Norm mg/dL (Negative) 10/26/23 20:40 Ur Leukocyte Esterase Negative (Negative) 10/26/23 20:40 All radiology interpretation(s) finalized by discharge Discharge Plan Discharge Patient Disposition: Home Clinical Impression: Intermittent right upper quadrant abdominal pain Hernia, umbilical Qualifiers: Obstruction and gangrene presence: without obstruction or gangrene Qualified Code(s): K42.9 - Umbilical hernia without obstruction or gangrene Condition: Stable Prescriptions: No Action cephalexin 500 mg capsule 500 mg PO BID 5 Days Qty: 10 0RF sertraline [Zoloft] 50 mg tablet 75 mg PO DAILY Qty: 30 2RF [id number] 1 mg Tablet 1 tab PO DAILY Discharge Orders: Discharge ED (Routine); Ordered 10/26/23 Ordered By: Ryan Hamlin Referrals: Charles Gilmore MD [Primary Care Provider] - Patient Instructions: Umbilical Hernia (ED), Abdominal Pain (ED) Activity Restrictions/Additional Instructions: Your physical exam and evaluation the ER did not reveal any acute cause of your epigastric and right upper quadrant abdominal pain. However did reveal an umbilical hernia. Please follow-up with your family practice physician within next 7 to 10 days for further evaluation and treatment which may include referral to general surgeon for your hernia and HIDA scan to check your gallbladder dysfunction. If your symptoms return, worsen or become unbearable please return to the ER. Coding Level of Care Code ED Assistant County Attorney for [place]
[2023-10-26] MEDS: lidocaine 2% viscous 15 ML, aluminum-mag hydrox-simethicon 30 ML, sucralfate oral liq 1 GM PO (18:39)
[2023-10-26] MEDS: sodium chloride 0.9% 1,000 ML 999 ML IV (19:23)
[2023-10-26] MEDS: ketorolac 30 mg/mL INJ IVP (19:25)
[2023-10-26 19:33] VITALS: BP 126/92; PULSE 80; O2SAT 97
[2023-10-26 19:42] LABS: Basophils % 0.5 %; Eosinophils # 0.2 10^3/uL (0.0-0.8); Eosinophils % 2.7 %; Hematocrit 44.1 % (36-47); Lymphocytes # 2.3 10^3/uL (0.8-4.8); Lymphocytes % 28.2 %; Mean Corpuscular HGB Conc 33.3 g/dL (30-55); Mean Corpuscular Hemoglobin 29.7 pg (27-33); Mean Corpuscular Volume 89.1 fl (85-98); Mean Platelet Volume 10.4 fL (7.4-10.4); Monocytes # 0.4 10^3/uL (0.2-0.9); Monocytes % 5.1 %; Neutrophils # 5.09 10^3/uL (1.8-7.7); Nucleated Red Blood Cells % 0 %; Platelet Count 260 10^3/cmm (157-399); Red Blood Count 4.95 10^6/uL (3.85-5.65); White Blood Count 8.08 10^3/uL (3.29-11.43)
[2023-10-26 19:54] LABS: HCG, Serum Qual Negative (Negative)
[2023-10-26 20:11] LABS: Alanine Aminotransferase 11 U/L (0-33); Albumin Level 4.5 g/dL (3.5-5.2); Alkaline Phosphatase 71 U/L (35-105); Anion Gap 14.2 (5-19); Aspartate Amino Transferase 12 U/L (0-32); Blood Urea Nitrogen 12 mg/dL (6-20); Calcium 9.5 mg/dL (8.5-10.5); Carbon Dioxide 24 mmol/L (22-29); Chloride 103 mmol/L (98-107); Globulin 3.1 g/dL (1.3-4.6); Glomerular Filtration Rate 118.2 mL/min (90-130); Glucose 81 mg/dL (65-115); Lipase 36 U/L (13-60); Osmolality Calculated 283 mOsm/kg (285-295); Potassium 4.2 mmol/L (3.5-5.1); Sodium 137 mmol/L (136-145); Total Bilirubin 0.3 mg/dL (0.15-1.2); Total Protein 7.6 g/dL (6.6-8.7)
--- NOTE | 2023-10-26 20:23 | CTR_ITS ---
PROCEDURE INFORMATION: Exam: CT Abdomen And Pelvis With Contrast Exam date and time: 10/26/2023 8:29 PM Age: 28 years old Clinical indication: Abdominal pain; Localized; Right upper quadrant (ruq); Prior surgery; Surgery date: 1-6 months; Patient HX: Patient says she had a csection 5 months ago and has had ruq pain ever since. She says the pain is mostly after she eats up underneath her ribs. ; Additional info: Ruq abd pain, TECHNIQUE: Imaging protocol: Computed tomography of the abdomen and pelvis with contrast. Radiation optimization: All CT scans at this facility use at least one of these dose optimization techniques: automated exposure control; mA and/or kV adjustment per patient size (includes targeted exams where dose is matched to clinical indication); or iterative reconstruction. Contrast material: OMNI 350; Contrast volume: 100 ml; Contrast route: INTRAVENOUS (IV); COMPARISON: US OB BPP wo NST [id number] 03/13/2023 9:36 PM RADIATION DOSE METRICS: Total DLP (mGy-cm): 809.26 FINDINGS: Lungs: Calcified granuloma in the right lower lobe. Liver: Unremarkable. Gallbladder and bile ducts: Unremarkable. Pancreas: Unremarkable. Spleen: Unremarkable. Adrenal glands: Unremarkable. Kidneys and ureters: Unremarkable. No hydronephrosis. Stomach and bowel: Unremarkable. No bowel obstruction. Appendix: No evidence of appendicitis. Intraperitoneal space: Unremarkable. Vasculature: Unremarkable. Lymph nodes: Calcified mediastinal lymph nodes in the chest suggesting sequela of prior granulomatous disease. Urinary bladder: Nondistended bladder. Reproductive: Unremarkable as visualized. Bones/joints: No acute osseous abnormality. Soft tissues: Fat containing supraumbilical hernia with 1.5 x 1.3 cm neck which demonstrates internal fat stranding. CT/CT abdomen pelvis w con* [id number] IMPRESSION: Fat containing supraumbilical ventral abdominal wall hernia with 1.5 x 1.3 cm neck which demonstrates mild associated inflammatory change.
[2023-10-26] MEDS: iohexol 350 mg/mL 500 mL Btl (per mL) IV (20:34)
[2023-10-26 20:41] VITALS: PULSE 73; O2SAT 97
[2023-10-26 21:11] LABS: Add Urine Microscopic? NO; Charge for UA Resulting for Rev
[2023-10-26 21:14] LABS: Bilirubin Urine Neg (Negative); Blood Urine Neg (Negative); Glucose Urine UA Norm (Normal); Ketones Urine Negative (Negative); Leukocyte Esterase Urine Negative (Negative); Nitrate Urine Negative (Negative); Protein Urine Neg (Negative); Urine Appearance Clear (CLEAR); Urine Color Straw (Yellow); Urobilinogen Urine Norm (Negative); pH Urine 6 (5-7)
[2023-10-26 21:31] VITALS: BP 137/93; PULSE 80; O2SAT 97
== END 2023-10-26 21:31 | disposition home or self-care (01) ==
PROVIDERS: Nurse Practitioner Family; Emergency Provider Emergency Medicine; PCP Obstetrics & Gynecology
DX: R10.11 Right upper quadrant pain (principal); K42.9 Umbilical hernia without obstruction or gangrene
CPT/HCPCS: 36415; 74177; 80053; 81003; 83690; 84703; 85025; 96361; 96374; 99285; J1885; J7030; Q9967

== ENCOUNTER 2024-01-30 14:53 | Outpatient (CLI) | payer OTHER, MEDICAID, SELFPAY ==
[2024-01-30 15:17] LABS: Basophils % 0.4 %; Eosinophils # 0.2 10^3/uL (0.0-0.8); Eosinophils % 3.1 %; Hematocrit 41.5 % (36-47); Lymphocytes # 2.1 10^3/uL (0.8-4.8); Lymphocytes % 30.9 %; Mean Corpuscular HGB Conc 33.5 g/dL (30-55); Mean Corpuscular Hemoglobin 29.4 pg (27-33); Mean Corpuscular Volume 87.9 fl (85-98); Mean Platelet Volume 10.3 fL (7.4-10.4); Monocytes # 0.4 10^3/uL (0.2-0.9); Monocytes % 5.2 %; Neutrophils # 4.04 10^3/uL (1.8-7.7); Neutrophils % 60.1 %; Nucleated Red Blood Cells % 0 %; Platelet Count 238 10^3/cmm (157-399); Red Blood Count 4.72 10^6/uL (3.85-5.65); Red Cell Distribution Width 11.9 % (12.1-15.1); White Blood Count 6.73 10^3/uL (3.29-11.43)
[2024-01-30 15:50] LABS: Alanine Aminotransferase 12 U/L (0-33); Albumin Level 4.3 g/dL (3.5-5.2); Alkaline Phosphatase 61 U/L (35-105); Anion Gap 15.8 (5-19); Aspartate Amino Transferase 12 U/L (0-32); Blood Urea Nitrogen 12 mg/dL (6-20); Calcium 9.4 mg/dL (8.5-10.5); Carbon Dioxide 26 mmol/L (22-29); Chloride 101 mmol/L (98-107); Chol HDL Ratio 3.56 mg/dL (0.0-4.40); Cholesterol 203 mg/dL (0-200); Glomerular Filtration Rate 118.2 mL/min (90-130); Glucose 86 mg/dL (65-115); HDL Cholesterol 57 mg/dL (60-100); LDL Cholesterol Calculated 91 mg/dL (50-129); Osmolality Calculated 287 mOsm/kg (285-295); Potassium 3.8 mmol/L (3.5-5.1); Sodium 139 mmol/L (136-145); Thyroid Stimulating Hormone 2.37 uIU/mL (0.27-4.20); Total Bilirubin 0.2 mg/dL (0.15-1.2); Total Protein 7.3 g/dL (6.6-8.7); Triglycerides 274 mg/dL (0-150)
[2024-01-30 15:58] LABS: HIV 1 & 2 Antibody Non-Reactive (Non-Reactiv); HIV 1 & 2 Antigen Non-Reactive (Non-Reactiv)
[2024-01-30 16:05] LABS: Hepatitis A Antibody IgM Non-Reactive (Nonreactive); Hepatitis B Core AB, Total Non-Reactive (Nonreactive); Hepatitis B Surface AB < 3.5 (11.5-1000); Hepatitis B Surface Antigen Non-Reactive (Nonreactive); Hepatitis C Virus Antibody Non-Reactive (Nonreactive)
== END 2024-01-30 14:54 | disposition home or self-care (01) ==
LOC: LAB 14:55
PROVIDERS: PCP Obstetrics & Gynecology; Visit Provider Nurse Practitioner Family
DX: Z87.898 Personal history of other specified conditions (principal); Z13.6 Encounter for screening for cardiovascular disorders
CPT/HCPCS: 36415; 80053; 80061; 84443; 85025; 86705; 86706; 86709; 86803; 87340; 87806

== ENCOUNTER 2024-02-26 07:55 | Day surgery (SDC) | payer OTHER, MEDICAID, SELFPAY ==
[2024-02-26] VITALS (11 sets, daily range): BP systolic 106–132; BP diastolic 60–86; PULSE 66–90; RESP 13–24; TEMP 36.5–36.6; O2SAT 94–97; BMI 36.8
--- NOTE | 2024-02-26 05:46 | W.PM.OPSFHP ---
Same Day Surgery H&P Indication for Procedure/HPI DATE OF PROCEDURE: February 26, 2024 CHIEF COMPLAINT/INDICATIONFOR SURGICAL PROCEDURE: ventral hernia PREOP DIAGNOSIS: ventral hernia PLANNED PROCEDURE: Operation Date: 02/26/24 09:25 Proposed Procedures p Laparoscopic Ventral Hernia Repair/ Possible open with mesh 82582,K43.9(Not Applicable) - Darrell Mars MD Medications/Allergies* Allergies/Adverse Reactions Allergy/AdvReac Type Severity Reaction Status Date / Time No Known Allergies Allergy Verified 01/30/24 14:07 Pertinent History/Comorbid Conditions* Medical History (Updated 01/30/24 @ 14:47 by Darrell Mars MD) delivery delivered Late care Family History (Updated 04/24/23 @ 13:00 by Katey Rojas) Denies family history of Colon cancer Ovarian cancer Diabetes Heart disease Hyperlipidemia Breast cancer Hypertension Uterine cancer Thyroid disease Stroke Pertinent Exam Findings alert, oriented x 3, clear to auscultation bilaterally and regular rate & rhythm Recommendations Surgery/Procedure today Coding Level of Care Code Acute Code for Chg Fwd
[2024-02-26 08:24] LABS: OR HCG Qualitative Urine Negative (Negative)
--- NOTE | 2024-02-26 08:39 | ANES.PREANE2 ---
Pre-Anesthetic Assessment Height/Weight: Height 1.6 m Preop Diagnosis: ventral hernia Operation Date: 02/26/24 09:25 Proposed Procedures p Laparoscopic Ventral Hernia Repair/ Possible open with mesh 79489,K43.9(Not Applicable) - Darrell Mars MD Familial anesthetic complications: None Was Beta Ugo taken within 24 hours: N/A Was Clonidine taken within 24 hours: N/A Last intake: > 8 hrs Social Tobacco and No alcohol Exam alert, oriented x 3, clear to auscultation bilaterally and regular rate & rhythm Airway Dentition: full Anesthetic Plan ASA status: 2 Anesthesia: General Risk of > 500 ml blood loss (7ml/kg in children): No Medications/Allergies Home Medications Medication Instructions Recorded Confirmed Last Taken Type chlorhexidine gluconate 0.12 % 15 ml buccal BID #473 mL 01/12/24 02/26/24 02/25/24 Rx mouthwash (Peridex) Allergies Allergy/AdvReac Type Severity Reaction Status Date / Time No Known Allergies Allergy Verified 01/30/24 14:07 [facility] Anesthesia Medical History delivery delivered Late care Family History Denies family history of Colon cancer Ovarian cancer Diabetes Heart disease Hyperlipidemia Breast cancer Hypertension Uterine cancer Thyroid disease Stroke Female Reproductive History Date of last menstrual period: 02/12/24 Data Anesthesia Cardiac Studies: No Data to Display
[2024-02-26] MEDS: sodium chloride 0.9% 1,000 ML 30 ML IV (08:46)
[2024-02-26] MEDS: ceFAZolin 2,000 MG in sodium chloride 0.9% (plus) 50 ML 100 MG IV (08:59)
[2024-02-26] MEDS: lidocaine-epi 1% 20 mL INJ 10 ML INJECTION (09:40)
[2024-02-26] MEDS: BUPivacaine 0.25% INJ 30 mL INJECTION (09:41)
--- NOTE | 2024-02-26 10:54 | P.OP_ITS ---
Operative Report Date of procedure: February 26, 2024 Pre-op diagnosis: Abdominal wall hernia Post-op diagnosis: Same Post-op findings: There was a 2 x 2 cm supraumbilical ventral hernia containing fat, there was additions of the omentum to the anterior abdominal wall in the infraumbilical and suprapubic region. Procedure done: Laparoscopic repair of ventral hernia, laparoscopic assisted transverse abdominal plane block Implants: 6 inches Bard Ventralight mesh Specimens removed/disposition: None Surgeon: Darrell Mars MD Electric Motor Control Assembler: ALBERT OR STaff Estimated blood loss: 15 Brief History: This is a 28-year-old female who presents to the hospital for evaluation of a ventral hernia, after discussion of all risk and benefits decided to proceed with a laparoscopic ventral hernia repair with mesh. Procedure: Patient was brought into the OR. She was placed in the supine position. General anesthesia was given. The abdomen was prepped and draped in the usual sterile fashion. Timeout was conducted. I accessed the abdomen with a 5 mm Optiview trocar at Tamez's point, this was done under direct visualization, upon entry into the abdomen pneumoperitoneum was achieved and no evidence of visceral injury during entry was noted. I then proceeded to place a 12 mm trocar in the left flank under direct visualization and 5 mm trocar in the left lower quadrant under direct visualization. Initial laparoscopy showed evidence of a supraumbilical hernia measuring 2 x 2 cm, the hernia spontaneously reduced during insufflation. In the infraumbilical location there was significant amount of additions from the omentum to anterior abdominal wall, these additions were carefully taken down with LigaSure. I then proceeded to take down the falciform ligament in a distance of about 4 cm to allow a good landing zone for the mesh. Once the abdominal wall was completely clear I proceeded to close the ventral hernia the defect using a 2-0 strata fix, the defect was completely closed at this point the I proceeded to place a 6 inches Ventralight mesh inside of the abdomen, the positioning system was retrieved in the supraumbilical region with a Robert-Mitch and once the mesh was completely opposed against the abdominal wall and in good position I proceeded to apply tacks in a double crown fashion. The positioning system was then removed from the mesh and retrieved through the 12 mm trocar site. At this point I noted a small amount of bleeding from one of the tacks sites. I provide compression using a Ray-Daniella for about a minute, this completely stop the bleeding, the right it was retrieved from the abdomen and then I proceeded to desufflate the abdomen for 2 minutes to ensure that no ongoing bleeding was noted. A pulmonary insufflation a low pressure no evidence of bleeding was noted the abdomen was completely hemostatic. At this point I proceeded to do bilateral transverses abdominal plane block using 15 cc of bupivacaine on each side. This was done under direct visualization. The 12 mm port was removed and the trocar site was closed under direct visualization using 0 Vicryl with a Robert-Mitch suture passer. I then proceeded to remove the left lower quadrant trocar under direct visualization, the left upper quadrant trocar was used to evacuate the pneumoperitoneum and subsequently removed. The skin of the wounds were closed with #4-0 Monocryl and Dermabond was applied. At the end of the procedure all counts were correct, the patient tolerated well the procedure and was transferred to PACU in stable condition.
[2024-02-26] MEDS: ondansetron 2 mg/ML SDV 2 mL 4 MG IVP (11:41)
[2024-02-26] MEDS: oxyCODONE 5 mg IR Tab/Cap PO (11:58)
--- NOTE | 2024-02-26 12:25 | ANE.PACU2 ---
Inpatient post-anesthesia follow up: Airway intact: Yes Vital signs: Temperature 97.8 F Pulse Rate 84 Respiratory Rate 18 Blood Pressure 125/60 Pulse Oximetry 94 Oxygen Delivery Me thod Room Air Oxygen Flow Rate Fraction of Inspir ed Oxygen Hydration adequate: Yes Nausea and vomiting: No Pain level: 1 Mental status: Baseline
== END 2024-02-26 12:25 | disposition home or self-care (01) ==
PROVIDERS: Anesthesiology; PCP Obstetrics & Gynecology; Visit Provider Surgery
PROC: 0WQF4ZZ Repair Abdominal Wall, Percutaneous Endoscopic Approach (ICD-10-PCS; CPT 49591; principal; 2024-02-26 09:15)
DX: K43.9 Ventral hernia without obstruction or gangrene (principal)
CPT/HCPCS: 49591; 81025; J0690; J1170; J2250; J2405; J2704; J3010; J3490; J7030

== ENCOUNTER → 2024-07-23 09:36 | Outpatient (BNVA) | payer OTHER, MEDICAID, SELFPAY | PROVIDERS: PCP Obstetrics & Gynecology; Visit Provider Nurse Practitioner Women's Health | DX: Z34.90 Encounter for supervision of normal pregnancy, unspecified, unspecified trimester (principal) | CPT/HCPCS: 86592; 86803; 87340; 87624; 87806 ==

== ENCOUNTER → 2024-08-26 09:08 | Outpatient (BNVA) | payer OTHER, MEDICAID, SELFPAY | PROVIDERS: Visit Provider Nurse Practitioner Women's Health | DX: N91.2 Amenorrhea, unspecified (principal); Z34.81 Encounter for supervision of other normal pregnancy, first trimester | CPT/HCPCS: 81025; 84702; 86850; 86900 ==

== ENCOUNTER → 2024-09-12 13:35 | Outpatient (BNVA) | payer OTHER, MEDICAID, SELFPAY | PROVIDERS: Visit Provider Nurse Practitioner Women's Health | DX: Z36.9 Encounter for antenatal screening, unspecified (principal) | CPT/HCPCS: 76801 ==

== ENCOUNTER → 2024-09-24 11:14 | Outpatient (BNVA) | payer MEDICAID, SELFPAY | PROVIDERS: Visit Provider Nurse Practitioner Women's Health | DX: Z34.90 Encounter for supervision of normal pregnancy, unspecified, unspecified trimester (principal) | CPT/HCPCS: 85025 ==

== ENCOUNTER 2024-10-02 12:34 | Outpatient (CLI) | payer MEDICAID, SELFPAY ==
[2024-10-02 13:18] LABS: Amphetamines Screen Urine Negative (Negative); Barbiturates Screen Urine Negative (Negative); Benzodiazepines Screen Urine Negative (Negative); Cocaine Screen Urine Negative (Negative); Opiate Screen Urine Negative (Negative); PCP Screen Urine Negative (Negative); THC Screen Urine Negative (Negative)
[2024-10-02 13:50] LABS: Basophils % 0.3 %; Eosinophils # 0.1 10^3/uL (0.0-0.8); Eosinophils % 2.2 %; Hematocrit 39.3 % (36-47); Lymphocytes # 1.4 10^3/uL (0.8-4.8); Lymphocytes % 24.2 %; Mean Corpuscular HGB Conc 33.1 g/dL (30-55); Mean Corpuscular Hemoglobin 28.6 pg (27-33); Mean Corpuscular Volume 86.6 fl (85-98); Mean Platelet Volume 10.5 fL (7.4-10.4); Monocytes # 0.3 10^3/uL (0.2-0.9); Neutrophils # 3.93 10^3/uL (1.8-7.7); Nucleated Red Blood Cells % 0 %; Platelet Count 204 10^3/cmm (157-399); Red Blood Count 4.54 10^6/uL (3.85-5.65); Red Cell Distribution Width 12.5 % (12.1-15.1); White Blood Count 5.79 10^3/uL (3.29-11.43)
[2024-10-02 14:18] LABS: Hepatitis B Surface Antigen Non-Reactive (Nonreactive); Hepatitis C Virus Antibody Non-Reactive (Nonreactive); Rubella IgG 85.2 IU/mL (0.0-10.0); Thyroid Stimulating Hormone 1.33 uIU/mL (0.27-4.20)
[2024-10-02 14:24] LABS: Rapid Plasma Reagin Syphilis Nonreactive (Nonreactive)
[2024-10-02 14:38] LABS: HIV 1 & 2 Antibody Non-Reactive (Non-Reactiv); HIV 1 & 2 Antigen Non-Reactive (Non-Reactiv)
[2024-10-02 18:26] LABS: Trichomonas vaginalis (PCR) NOT DETECTED
[2024-10-02 18:49] LABS: Chlamydia Trachomatis NOT DETECTED; Neisseria Gonorrhea NOT DETECTED
== END 2024-10-02 12:35 | disposition home or self-care (01) ==
LOC: LAB 12:36
PROVIDERS: PCP Nurse Practitioner Women's Health; Visit Provider Nurse Practitioner Women's Health
DX: Z34.90 Encounter for supervision of normal pregnancy, unspecified, unspecified trimester (principal)
CPT/HCPCS: 36415; 80306; 84443; 85025; 86592; 86762; 86803; 86850; 86900; 87086; 87340; 87491; 87591; 87661; 87806

== ENCOUNTER → 2024-10-18 09:59 | Outpatient (BNVA) | payer MEDICAID, SELFPAY | PROVIDERS: PCP Nurse Practitioner Women's Health; Visit Provider Obstetrics & Gynecology | DX: Z34.90 Encounter for supervision of normal pregnancy, unspecified, unspecified trimester (principal); Z34.80 Encounter for supervision of other normal pregnancy, unspecified trimester | CPT/HCPCS: 84315; 87491; 87591; 87661 ==

== ENCOUNTER 2024-10-30 21:59 | Emergency (ER) | payer MEDICAID, SELFPAY ==
[2024-10-30 22:28] VITALS: BP 117/77; PULSE 85; RESP 16; TEMP 36.6; O2SAT 98; BMI 38.4
[2024-10-30 23:18] LABS: Bilirubin Urine Negative (Negative); Blood Urine Negative (Negative); Glucose Urine UA Negative (Normal); Ketones Urine Negative (Negative); Leukocyte Esterase Urine Negative (Negative); Nitrate Urine Negative (Negative); Protein Urine Negative (Negative); Specific Gravity, Urine 1.017 (1.005-1.030); Urine Appearance Turbid (CLEAR); Urine Color Yellow (Yellow)
[2024-10-30 23:38] LABS: Bacteria Urine TRACE /hpf; RBC Urine 0-4 /hpf (0-2); UA Manual Slide Review YES; UA Slide Review UA Slide Review Perf; WBC Urine 0-4 /hpf (0-5)
[2024-10-30 23:39] LABS: Amorphous Sediment Urine 3+ /hpf
[2024-10-31 00:34] LABS: Influenza A NEGATIVE (Negative); Influenza B NEGATIVE (Negative); Respiratory Syncytial Virus Ce NEGATIVE (Negative); SARS-CoV-2 PCR NEGATIVE (Negative)
--- NOTE | 2024-10-31 00:42 | ED_ITS ---
HPI - Abdominal Pain 2 General: Chief Complaint: Abdominal Pain Stated Complaint: 16 wk preg n/v headache stomach tight Time Seen by Provider: 10/31/24 00:39 History of Present Illness: 29-year-old female who is approximately 16 weeks who presents emergency room with abdominal cramping, nausea and a headache. This has been going on all day today. No vaginal bleeding. No contractions. No vaginal discharge. No altered mental status. Related Data Previous Rx's ?Medication ?Instructions ?Recorded vits no.126-ferrous fum 1 tab PO DAILY #90 ta bs 08/26/24 28 mg iron-folic acid 800 mcg tablet (Classic ) Allergies Allergy/AdvReac Type Severity Reaction Status Date / Time No Known Allergies Allergy Verified 10/30/24 22:32 Review of Systems 2 Narrative: General: Alert, no acute distress. Skin: Warm, dry. Head: Normocephalic, atraumatic. Neck: Supple, trachea midline. Eye: Extraocular movements are intact. Ears, nose, mouth and throat: mucosa moist. Cardiovascular: Regular, Normal peripheral perfusion. Respiratory: Lungs are clear to auscultation, respirations are non-labored, breath sounds are equal, Symmetrical chest wall expansion. Gastrointestinal: Soft, Nontender, Non distended Musculoskeletal: Normal ROM, no deformity. Neurological: Alert and oriented, No focal neurological deficit observed. Psychiatric: Cooperative, appropriate mood & affect. [facility] ED 2 PFSH: Medical History delivery delivered Late care Family History Denies family history of Colon cancer Ovarian cancer Diabetes Heart disease Hyperlipidemia Breast cancer Hypertension Uterine cancer Thyroid disease Stroke Social History Smoking and tobacco/nicotine status: current every day tobacco/nicotine user (no longer smokes cigarettes, vapes daily) Physical Exam 2 Narrative: EXAM NARRATIVE: General: Alert, no acute distress. Skin: Warm, dry. Head: Normocephalic, atraumatic. Neck: Supple, trachea midline. Eye: Extraocular movements are intact. Ears, nose, mouth and throat: mucosa moist. Cardiovascular: Regular, Normal peripheral perfusion. Respiratory: Lungs are clear to auscultation, respirations are non-labored, breath sounds are equal, Symmetrical chest wall expansion. Gastrointestinal: Soft, Nontender, Non distended Musculoskeletal: Normal ROM, no deformity. Neurological: Alert and oriented, No focal neurological deficit observed. Psychiatric: Cooperative, appropriate mood & affect. Course 2 Vital Signs: Vital signs: Vital Signs Temperature 97.8 F 10/30/24 22:28 Pulse Rate 83 10/31/24 01:16 Respiratory Rate 16 10/31/24 01:16 Blood Pressure 109/75 10/31/24 01:16 Pulse Oximetry 98 10/31/24 01:16 Oxygen Delivery Me thod Room Air 10/31/24 01:16 MDM - Abdominal Pain Medical Decision Making Lab Review: Laboratory results were reviewed and interpreted by myself the emergency room physician. Flu and COVID were negative. Urinalysis negative for infection. No leukocytosis. No renal failure. I reviewed the patient's medical record. Reexamination: Patient remained stable. No increased work of breathing. No altered mental status. No focal motor deficits. heart tones were 162. No concerning symptoms. Assessment and plan: Dehydration ? Zofran and IV fluids. - Discharged home - Discussed plan with patient. Answered any questions. - Evaluation and treatment of this problem were appropriate in the emergency setting. Lab Data 10/31/24 00:43 10/31/24 00:43 Labs/Radiology: Laboratory Results WBC 8.70 10^3/uL (3.29-11.43) 10/31/24 00:43 RBC 4.54 10^6/uL (3.85-5.65) 10/31/24 00:43 Hgb 13.00 g/dL (11.27-16.99) 10/31/24 00:43 Hct 38.8 % (36-47) 10/31/24 00:43 MCV 85.5 fl (85-98) 10/31/24 00:43 MCH 28.6 pg (27-33) 10/31/24 00:43 MCHC 33.5 g/dL (30-55) 10/31/24 00:43 RDW 12.7 % (12.1-15.1) 10/31/24 00:43 Plt Count 214 10^3/cmm (157-399) 10/31/24 00:43 MPV 10.3 fL (7.4-10.4) 10/31/24 00:43 Neut % (Auto) 63.0 % 10/31/24 00:43 Lymph % (Auto) 28.2 % 10/31/24 00:43 Sanders % (Auto) 5.5 % 10/31/24 00:43 Eos % (Auto) 2.0 % 10/31/24 00:43 Baso % (Auto) 0.5 % 10/31/24 00:43 Neut # (Auto) 5.49 10^3/uL (1.8-7.7) 10/31/24 00:43 Lymph # (Auto) 2.5 10^3/uL (0.8-4.8) 10/31/24 00:43 Sanders # (Auto) 0.5 10^3/uL (0.2-0.9) 10/31/24 00:43 Eos # (Auto) 0.2 10^3/uL (0.0-0.8) 10/31/24 00:43 Baso # (Auto) 0.0 10^3/uL (0.0-0.1) 10/31/24 00:43 Nucleated RBC % (auto) 0 % 10/31/24 00:43 Nucleated RBCs # 0.0 /100WBC 10/31/24 00:43 Sodium 136 mmol/L (136-145) 10/31/24 00:43 Potassium 4.0 mmol/L (3.5-5.1) 10/31/24 00:43 Chloride 102 mmol/L (98-107) 10/31/24 00:43 Carbon Dioxide 20 mmol/L (22-29) L 10/31/24 00:43 Anion Gap 18.0 (5-19) 10/31/24 00:43 BUN 8 mg/dL (6-20) 10/31/24 00:43 Creatinine 0.4 mg/dL (0.5-0.9) L 10/31/24 00:43 GFR Calculation 187.4 mL/min (90-130) H 10/31/24 00:43 Glucose 84 mg/dL (65-115) 10/31/24 00:43 Calculated Osmolality 280 mOsm/kg (285-295) L 10/31/24 00:43 Calcium 9.2 mg/dL (8.5-10.5) 10/31/24 00:43 Total Bilirubin 0.2 mg/dL (0.15-1.2) 10/31/24 00:43 AST 10 U/L (0-32) 10/31/24 00:43 ALT 6 U/L (0-33) 10/31/24 00:43 Alkaline Phosphatase 68 U/L (35-105) 10/31/24 00:43 Total Protein 7.3 g/dL (6.6-8.7) 10/31/24 00:43 Albumin 3.9 g/dL (3.5-5.2) 10/31/24 00:43 Globulin 3.4 g/dL (1.3-4.6) 10/31/24 00:43 Ser , Semi-Qnt 84063.00 mIU/mL 10/31/24 00:43 Urine Color Yellow (Yellow) 10/30/24 22:36 Urine Appearance Turbid (CLEAR) A 10/30/24 22:36 Urine pH 7.0 (5-7) 10/30/24 22:36 Ur Specific [place] 1.017 (1.005-1.030) 10/30/24 22:36 Urine Protein Negative (Negative) 10/30/24 22:36 Urine Glucose (UA) Negative (Normal) 10/30/24 22:36 Urine Ketones Negative (Negative) 10/30/24 22:36 Urine Blood Negative (Negative) 10/30/24 22:36 Urine Nitrate Negative (Negative) 10/30/24 22:36 Urine Bilirubin Negative (Negative) 10/30/24 22:36 Urine Urobilinogen 1.0 mg/dL (Negative) 10/30/24 22:36 Ur Leukocyte Esterase Negative (Negative) 10/30/24 22:36 Urine RBC 0-4 /hpf (0-2) H 10/30/24 22:36 Urine WBC 0-4 /hpf (0-5) H 10/30/24 22:36 Ur Squamous Epith Cells 5-10 /hpf (0-5) H 10/30/24 22:36 Amorphous Sediment 3+ /hpf 10/30/24 22:36 Urine Bacteria Trace /hpf (NONE) 10/30/24 22:36 Influenza A (PCR) Negative (Negative) 10/30/24 23:55 Influenza Type B (PCR) Negative (Negative) 10/30/24 23:55 RSV (PCR) Negative (Negative) 10/30/24 23:55 SARS-CoV-2 (PCR) Negative (Negative) 10/30/24 23:55 All radiology interpretation(s) finalized by discharge Discharge Plan Discharge Patient Disposition: Home Clinical Impression: Dehydration Qualifiers: Weeks of gestation: 10 weeks Qualified Code(s): Z3A.10 - 10 weeks gestation of Condition: Stable Prescriptions: No Action Classic 28 mg iron- 800 mcg tablet 1 tab PO DAILY Qty: 90 3RF Rx Instructions: take one tab daily Discharge Orders: Discharge ED (Routine); Ordered 10/31/24 Ordered By: Jennifer Bradley Discharge Diet: Usual diet Discharge Activity: Increase activity as tolerated Patient Instructions: Opioid Safety, Pain Management Activity Restrictions/Additional Instructions: Thank you for choosing [facility] for your healthcare needs today. Please realize this is an emergency room and that we are providing you with a medical screening exam and this may not be complete and all inclusive of all the testing and or work up that you may need to determine your ailment or severity of your illness. You have been screened and evaluated and felt safe for discharge. Health conditions do change or evolve sometimes and as such it is important that you follow up with your Primary Doctor to be re checked, 3-5 days is a general good time frame for follow up. You are always welcome to return to the ED for re assessment if your symptoms are worsening or you have new concerns Print Language: [place] Islander Coding Level of Care Code ED Debate Director for Alexa Pike
[2024-10-31 00:46] LABS: Basophils % 0.5 %; Eosinophils # 0.2 10^3/uL (0.0-0.8); Hematocrit 38.8 % (36-47); Lymphocytes # 2.5 10^3/uL (0.8-4.8); Lymphocytes % 28.2 %; Mean Corpuscular HGB Conc 33.5 g/dL (30-55); Mean Corpuscular Hemoglobin 28.6 pg (27-33); Mean Corpuscular Volume 85.5 fl (85-98); Mean Platelet Volume 10.3 fL (7.4-10.4); Monocytes # 0.5 10^3/uL (0.2-0.9); Monocytes % 5.5 %; Neutrophils # 5.49 10^3/uL (1.8-7.7); Nucleated Red Blood Cells % 0 %; Platelet Count 214 10^3/cmm (157-399); Red Blood Count 4.54 10^6/uL (3.85-5.65); Red Cell Distribution Width 12.7 % (12.1-15.1)
[2024-10-31 01:16] VITALS: BP 109/75; PULSE 83; RESP 16; O2SAT 98
[2024-10-31 01:16] LABS: Alanine Aminotransferase 6 U/L (0-33); Albumin Level 3.9 g/dL (3.5-5.2); Alkaline Phosphatase 68 U/L (35-105); Aspartate Amino Transferase 10 U/L (0-32); Blood Urea Nitrogen 8 mg/dL (6-20); Calcium 9.2 mg/dL (8.5-10.5); Carbon Dioxide 20 mmol/L (22-29); Chloride 102 mmol/L (98-107); Creatinine Clr Calc Pharmacy 221.2885; Globulin 3.4 g/dL (1.3-4.6); Glomerular Filtration Rate 187.4 mL/min (90-130); Glucose 84 mg/dL (65-115); Osmolality Calculated 280 mOsm/kg (285-295); Sodium 136 mmol/L (136-145); Total Bilirubin 0.2 mg/dL (0.15-1.2); Total Protein 7.3 g/dL (6.6-8.7)
[2024-10-31 01:50] VITALS: BP 91/72; PULSE 86; RESP 16; O2SAT 99
[2024-10-31] MEDS: ondansetron 2 mg/ML SDV 2 mL 4 MG IVP (01:51)
[2024-10-31] MEDS: sodium chloride 0.9% 1,000 ML 999 ML IV (01:51)
[2024-10-31 03:34] VITALS: BP 114/70; PULSE 91; RESP 16; O2SAT 98
== END 2024-10-31 03:00 | disposition home or self-care (01) ==
PROVIDERS: Emergency Provider Emergency Medicine
DX: O26.891 Other specified pregnancy related conditions, first trimester (principal); Z3A.10 10 weeks gestation of pregnancy; Z11.52 Encounter for screening for COVID-19; F17.290 Nicotine dependence, other tobacco product, uncomplicated
CPT/HCPCS: 36415; 80053; 81001; 84702; 85025; 87637; 96361; 96374; 99284; J2405; J7030

== ENCOUNTER → 2024-11-04 13:20 | Outpatient (BNVA) | payer MEDICAID, SELFPAY | PROVIDERS: Visit Provider Nurse Practitioner Women's Health | DX: Z34.82 Encounter for supervision of other normal pregnancy, second trimester (principal) | CPT/HCPCS: 84315 ==

== ENCOUNTER → 2024-12-03 09:21 | Outpatient (BNVA) | payer MEDICAID, SELFPAY | PROVIDERS: Visit Provider Obstetrics & Gynecology | DX: Z34.90 Encounter for supervision of normal pregnancy, unspecified, unspecified trimester (principal); Z3A.19 19 weeks gestation of pregnancy | CPT/HCPCS: 76805 ==

== ENCOUNTER → 2024-12-11 10:42 | Outpatient (BNVA) | payer SELFPAY | PROVIDERS: Visit Provider Obstetrics & Gynecology | DX: Z3A.10 10 weeks gestation of pregnancy (principal); Z34.90 Encounter for supervision of normal pregnancy, unspecified, unspecified trimester | CPT/HCPCS: 84315 ==

== ENCOUNTER → 2025-01-02 11:02 | Outpatient (BNVA) | payer SELFPAY | PROVIDERS: Visit Provider Obstetrics & Gynecology | DX: Z36.2 Encounter for other antenatal screening follow-up (principal) | CPT/HCPCS: 76816; 84315 ==

== ENCOUNTER → 2025-01-30 09:38 | Outpatient (BNVA) | payer MEDICAID, SELFPAY | PROVIDERS: Visit Provider Nurse Practitioner Women's Health | DX: Z34.80 Encounter for supervision of other normal pregnancy, unspecified trimester (principal) | CPT/HCPCS: 82950; 84315; 85025 ==

== ENCOUNTER → 2025-02-04 07:58 | Outpatient (BNVA) | payer MEDICAID, SELFPAY | PROVIDERS: Visit Provider Nurse Practitioner Women's Health | DX: Z34.80 Encounter for supervision of other normal pregnancy, unspecified trimester (principal) | CPT/HCPCS: 82951; 82952 ==

== ENCOUNTER → 2025-02-10 09:57 | Outpatient (BNVA) | payer MEDICAID, SELFPAY | PROVIDERS: Visit Provider Obstetrics & Gynecology | DX: O09.299 Supervision of pregnancy with other poor reproductive or obstetric history, unspecified trimester (principal) | CPT/HCPCS: 84315 ==

== ENCOUNTER 2025-02-13 21:51 | Outpatient (CLI) | payer MEDICAID, SELFPAY ==
[2025-02-13 21:58] VITALS: BMI 38.4
[2025-02-13 22:05] VITALS: BP 132/75; PULSE 99
[2025-02-13 22:08] VITALS: RESP 17
[2025-02-13 22:16] LABS: Bilirubin Urine Negative (Negative); Blood Urine Negative (Negative); Glucose Urine UA Negative (Normal); Ketones Urine 1+ (Negative); Leukocyte Esterase Urine Negative (Negative); Nitrate Urine Negative (Negative); Protein Urine 1+ (Negative); Urine Appearance Clear (CLEAR); Urine Color Dark Yellow (Yellow)
[2025-02-13 22:20] VITALS: BP 110/59; PULSE 96
[2025-02-13 22:21] LABS: Bacteria Urine Trace /hpf; Hyaline Casts Urine 3.71 /lpf; RBC Urine 0-2 /hpf (0-2); Squamous Epithelial Cell Urine 0-5 /hpf (0-5); WBC Urine 0-5 /hpf (0-5)
[2025-02-13 22:31] LABS: Specific Gravity, Urine 1.046 (1.005-1.030); UA Slide Review UA Slide Review Perf
[2025-02-13 22:32] LABS: Add Urine Culture? No
[2025-02-13 22:37] VITALS: BP 138/68; PULSE 98
[2025-02-13 22:40] VITALS: BP 138/68; PULSE 98; RESP 17
== END 2025-02-13 22:40 | disposition home or self-care (01) ==
LOC: OPOB 21:56 → OBGYN 21:56
PROVIDERS: Visit Provider Obstetrics & Gynecology
DX: O26.899 Other specified pregnancy related conditions, unspecified trimester (principal); Z3A.00 Weeks of gestation of pregnancy not specified; R10.9 Unspecified abdominal pain
CPT/HCPCS: 59025; 81001; 99211

== ENCOUNTER → 2025-03-10 07:54 | Outpatient (BNVA) | payer MEDICAID, SELFPAY | PROVIDERS: Visit Provider Nurse Practitioner Women's Health | DX: O09.299 Supervision of pregnancy with other poor reproductive or obstetric history, unspecified trimester (principal); Z3A.33 33 weeks gestation of pregnancy | CPT/HCPCS: 76816; 84315 ==

== ENCOUNTER → 2025-03-24 13:00 | Outpatient (BNVA) | payer MEDICAID, SELFPAY | PROVIDERS: Visit Provider Obstetrics & Gynecology | DX: Z34.80 Encounter for supervision of other normal pregnancy, unspecified trimester (principal) | CPT/HCPCS: 84315; 87081 ==

== ENCOUNTER → 2025-04-07 10:39 | Outpatient (BNVA) | payer MEDICAID, SELFPAY | PROVIDERS: Visit Provider Obstetrics & Gynecology | DX: Z34.90 Encounter for supervision of normal pregnancy, unspecified, unspecified trimester (principal) | CPT/HCPCS: 84315 ==

== ENCOUNTER 2025-04-11 05:06 | Inpatient (IN) | payer MEDICAID, SELFPAY ==
--- NOTE | 2025-04-07 11:35 | P.ANESASSM_ITS ---
Pre-Anesthetic Assessment Height/Weight: Height 1.57 m Operation Date: 04/11/25 07:20 Proposed Procedures p Section Repeat(Not Applicable) - Juan J Hernandez MD Familial anesthetic complications: None Social Tobacco and No alcohol Exam alert, oriented x 3, clear to auscultation bilaterally and regular rate & rhythm Airway Mallampati: Class II Anesthetic Plan ASA status: 2 Anesthesia: Regional (specify below) Risk of > 500 ml blood loss (7ml/kg in children): Yes, adequate IV access and fluids planned Medications/Allergies Home Medications ?Medication ?Instructions ?Recorded ?Confirmed ?Last Taken ?Type vits no.126-ferrous fum 1 tab PO DAILY #90 ta bs 08/26/24 04/07/25 Unknown Rx 28 mg iron-folic acid 800 mcg tablet (Classic ) famotidine 20 mg tablet (Pepcid) 20 mg PO BID #60 tabs 02/04/25 04/07/25 Unknown Rx Allergies Allergy/AdvReac Type Severity Reaction Status Date / Time No Known Allergies Allergy Verified 04/07/25 09:03 PFSH Anesthesia Medical History No pertinent past medical history Neghx: htn, dm, thyroid, dvt/pe pcp:none delivery delivered Late care Surgical History Hx of hernia repair Laparoscopic repair of ventral hernia, laparoscopic assisted transverse abdominal plane block-02/26/24 Dr Mars Family History Denies family history of Colon cancer Ovarian cancer Diabetes Heart disease Hyperlipidemia Breast cancer Hypertension Uterine cancer Thyroid disease Stroke Social History Smoking and tobacco/nicotine status: current every day tobacco/nicotine user (no longer smokes cigarettes, vapes daily)
[2025-04-11] VITALS (44 sets, daily range): BP systolic 83–137; BP diastolic 55–95; PULSE 69–95; RESP 16–19; TEMP 35.6–36.7; O2SAT 95–100; BMI 38.7
[2025-04-11 05:57] LABS: Hematocrit 34.0 % (36-47); Hemoglobin 11.40 g/dL (11.27-16.99); Mean Corpuscular HGB Conc 33.5 g/dL (30-55); Mean Corpuscular Hemoglobin 28.7 pg (27-33); Mean Corpuscular Volume 85.6 fl (85-98); Nucleated Red Blood Cells % 0 %; Platelet Count 155 10^3/cmm (157-399); Red Blood Count 3.97 10^6/uL (3.85-5.65); White Blood Count 9.72 10^3/uL (3.29-11.43)
--- NOTE | 2025-04-11 06:21 | PM.OPHPUD ---
Labor & Delivery H&P Update Date of Procedure: April 11, 2025 Date H&P Performed: 04/07/25 H&P update information: I have reviewed H&P completed within last 30 days, I have examined patient prior to procedure, Changes to prior documentation as noted here (gestational age now +4days) and Risks and benefits of the procedure reviewed Admission Diagnosis: Preop diagnosis: 39+ weeks, Nicotine use Hx, IV drug use Hx Primary indication for procedure: Repeat CS Planned procedure: Operation Date: 04/11/25 07:20 Proposed Procedures p Section Repeat(Not Applicable) - Juan J Hernandez MD
--- NOTE | 2025-04-11 06:27 | PM.OPHPUD ---
Labor & Delivery H&P Update Date of Procedure: April 11, 2025 Date H&P Performed: 04/07/25 Changes to previous documentation: None Admission Diagnosis: 39wks for repeat section Preop diagnosis: 39+ weeks, Nicotine use Hx, IV drug use Hx Primary indication for procedure: Repeat Planned procedure: Operation Date: 04/11/25 07:20 Proposed Procedures Section Repeat - Juan J Hernandez MD
--- NOTE | 2025-04-11 06:30 | P.ANESUD_ITS ---
Pre-Anesthetic Update Pre-Anesthetic Assessment: Date of Surgery/Procedure: 04/11/25 Preop Izabella gnosis: 39+ weeks, Nicotine use Hx, IV drug use Hx Proposed Procedure: Operation Date: 04/11/25 07:20 Proposed Procedures p Section Repeat(Not Applicable) - Juan J Hernandez MD Changes from Pre-Anesthetic Assessment: No changes since patient was seen in preop clinic. Labs reviewed from this morning and acceptable for spinal anesthetic. ASA 2 Last Intake: Intake Last Liquid Date 04/11/25 Last Liquid Time 00:00 Last Solid Date 04/11/25 Last Solid Time 00:00 Labs Last 48hrs: Short CBC 04/11/25 Range/Units 05:30 WBC 9.72 (3.29-11.43) 10^ 3/uL Hgb 11.40 (11.27-16.99) g/ dL Hct 34.0 L (36-47) % MCV 85.6 (85-98) fl Plt Count 155 L (157-399) 10^3/c mm Neut % (Auto) 67.1 % Neut # (Auto) 6.52 (1.8-7.7) 10^3/u L Blood Bank 04/11/25 05:30 Blood Type B Positive Rho(D) Type Rh positive Antibody Screen Negative Vitals: Temperature 97.6 F 04/11/25 11:00 Temperature Source Oral 04/11/25 11:00 Pulse Rate 69 04/11/25 12:02 Respiratory Rate 17 04/11/25 12:00 Respiratory Effort Spontaneous, Non- Labored 04/11/25 06:16 Respiratory Depth Normal 04/11/25 06:16 Respiratory Patter n Normal 04/11/25 06:16 Blood Pressure 113/66 04/11/25 12:02 Blood Pressure Zara n 69 04/11/25 09:15 Blood Pressure Pos ition Semi Fowlers 04/11/25 09:15 Pulse Oximetry 97 04/11/25 09:58 Oxygen Delivery Me thod Room Air 04/11/25 12:00
[2025-04-11] MEDS: metoclopramide 5 mg/mL SDV 2 mL 10 MG IVP (06:47)
[2025-04-11] MEDS: citric acid-sodium citrate 30 mL UDC PO (06:49)
--- NOTE | 2025-04-11 09:06 | PM.OP2 ---
Brief Operative Note Date of procedure: 04/11/25 Pre-op diagnosis: 39 weeks, Previous x3,smoker,hx preeclampsia Post-op diagnosis: same (BG, 8/9 ,7lbs) Procedure Done: Repeat LT section Complications: 450ml Post-op Plan: To recovery,see orders
--- NOTE | 2025-04-11 09:10 | PM.OP ---
Operative Report Date of procedure: April 11, 2025 Pre-op diagnosis: 39wk, hx CS, smoker,hx of preeclampsia Post-op diagnosis: Same Post-op findings: BG,7lbs, 8/9 Procedure done: Repeat LTCS Surgeon: Juan J Hernandez MD Anesthesia: Spinal Estimated blood loss: 450ml Complications: None Findings: Thin low uterine segment Procedure: PREOPERATIVE DIAGNOSES: 1. Intrauterine at 39 weeks. 2. Repeat CS 3. Smoker 4. Hx preeclampsia 5. BMI 38 POSTOPERATIVE DIAGNOSES: Same OPERATION PERFORMED: Repeat low transverse section . SURGEON: Juan J Hernandez MD ANESTHESIA: Spinal anesthesia. COMPLICATIONS: None. ESTIMATED BLOOD LOSS: 450 mL. URINE OUTPUT: clear, non bloody IV Ab prophylaxis verbal order of Ancef 2 gram IV. OPERATIVE FINDINGS: Normal female with normal Apgars at one and five minutes 8/9 with weight of 7lbs. DESCRIPTION OF OPERATION: After informed consent, risks and benefits of the procedure was discussed with the patient. The patient was taken to the operating room where she was placed in the dorsal lithotomy position with leftward tilt. After placement of spinal anesthesia, which was found to be adequate, she was then prepped and draped in the usual sterile fashion. A Pfannenstiel skin incision was made with a scalpel after old scar removed and carried through to the underlying layer of fascia. The fascia was then nicked in the midline, extending bilaterally and sparing the inferior aspects. The fascia was dissected off the rectus muscles bluntly. The rectus muscles were in the midline, and peritoneum was identified, entered with hemostat, and extended superiorly and inferiorly with good visualization of the bladder. The bladder blade was then inserted. Very thin lower segment able to visualize babys hand. The uterine incision was then made with the scalpel and extended with bilateral index fingers in a crescent-shaped fashion. The head was delivered then the body atraumatically. The cord was clamped and cut. The infant was then handed off to the awaiting pediatric staff. The placenta was then delivered manually, intact. The uterus was then exteriorized and cleared of all clots and debris. The uterine incision was then closed with 1-0 vicryl in a running locked fashion. A second layer of the same suture was used in an locked fashion for hemostasis. Two hemostatic sutures needed over the uterine insicion. Good hemostasis achieved. The uterus was then returned to the abdomen. Bilateral gutters were cleared off all clots and debris after irrigation and sucction with NS. The uterine incision was again noted to be hemostatic. Plain 1-0 gut used in running fashion for peritoneal approximation. The subfascial layer was noted to be hemostatic, and the fascia was closed with 1-0 Vicryl in a running fashion. The subcutaneous layer was then closed with 2-0 plain gut x2 layers . The skin was closed with 4-0 Vicryl in a subcuticular fashion . Steri-Strips, and pressure dressing were applied. All instruments, needle, and lap counts were correct x2. The patient was taken to the recovery room in stable condition.
--- NOTE | 2025-04-11 09:15 | ANE.PACU2 ---
Inpatient post-anesthesia follow up: Airway intact: Yes Vital signs: Temperature 97.6 F Pulse Rate 69 Respiratory Rate 17 Blood Pressure 113/66 Pulse Oximetry 97 Oxygen Delivery Me thod Room Air Oxygen Flow Rate Fraction of Inspir ed Oxygen Hydration adequate: Yes Nausea and vomiting: No Pain level: 2 Mental status: Baseline
[2025-04-11] MEDS: diphenhydrAMINE 50 mg/mL SDV 1mL 25 MG IVP (09:38)
--- NOTE | 2025-04-11 12:28 | PC.NURSE ---
1025 Patient requests nicotine patch; Dr. Hernandez notified.
--- NOTE | 2025-04-11 15:49 | PC.NURSE ---
1530 Patient to sitting at side of bed, then to standing. Perineum cleansed, clean peripad and underwear applied. Patient to sitting in chair. Tolerated well.
[2025-04-11 21:11] LABS: Hematocrit 29.0 % (36-47); Hemoglobin 9.60 g/dL (11.27-16.99); Mean Corpuscular HGB Conc 33.1 g/dL (30-55); Mean Corpuscular Hemoglobin 28.7 pg (27-33); Mean Corpuscular Volume 86.6 fl (85-98); Platelet Count 135 10^3/cmm (157-399); Red Blood Count 3.35 10^6/uL (3.85-5.65); White Blood Count 6.81 10^3/uL (3.29-11.43)
[2025-04-12 01:35] VITALS: BP 121/77; PULSE 97; TEMP 36.8; O2SAT 97
[2025-04-12] MEDS: alum-mag-hydroxide-sime 30 mL UDC PO (02:33)
[2025-04-12 06:45] VITALS: BP 130/79; PULSE 75; TEMP 36.7; O2SAT 98
--- NOTE | 2025-04-12 08:52 | PM.OBGYPN ---
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 No complaints of headaches nausea vomiting fever or chills. Pain controlled. No excessive vaginal bleeding. Labor: Amniotic Membrane Status: Intact Monitor Mode: External Status: Category I Vitals/I&O/Wt Last Vital Signs Temp 98.1 F 04/12/25 06:45 Pulse 75 04/12/25 06:45 Resp 18 04/11/25 18:30 BP 130/79 04/12/25 06:45 Pulse Ox 98 04/12/25 06:45 O2 Del Method Room Air 04/12/25 01:35 04/11/25 04/12/25 04/12/25 22:59 06:59 14:59 Output Total 235 / 620 Balance -235 / -620 Weight last 48 hrs Weight 212 lb Physical Exam Narrative: Contracted uterus below the umbilicus, not painful, not tender. Normal pain around section incision on palpation. Dressing to be removed today. Normal lochia. Urinary Catheter Management: Ta Latex Free: Cath Placed During This Visit: yes, but has since been removed by the nurse Reason for Continuing Indwelling Catheter: Decision to DC Catheter Urinary Catheter Date of Insertion: 04/11/25 Urinary Catheter Time of Insertion: 07:12 Date Urinary Catheter Removed: 04/11/25 Time Urinary Catheter Discontinued: 18:45 Data 04/11/25 21:00 A&P Assessment and plan 1. S/P primary low transverse : 2. Hx of section: 3. Smoker in home: Plan: Recently post day 1, afebrile, normotensive, pain controlled.Overall no apparent distress. She exhibits the usual difficulty and discomfort moving around postoperatively. Folley removed. Voiding and passing gas. Abdomen has the normal post- appearance and the expected amount of tenderness. It is non-distended, normal active bowel sounds, fundus is firm. Heavy smoker using 21 mg nicotine patch daily without complications. Tolerating diet. Will encourage daily ambulation with assistance if necessary. PDMP PDMP Reviewed: Not Reviewed Attestations Medical Necessity Statement*: Patient recovering one day after major surgery. Coding Level of Care Code Acute Code for Chg Fwd Diagnoses S/P primary low transverse Z98.891 Hx of section Z98.891 Smoker in home Z77.22
[2025-04-12] MEDS: PRENATAL VIT NO.130/IRON/FOLIC 1 EACH TABLET PO (10:21)
[2025-04-12] MEDS: HYDROcodone-acetaminophen 5-325 mg Tablet PO ×2 (17:38→21:27)
[2025-04-12 17:40] VITALS: BP 122/78; PULSE 92; RESP 16; TEMP 36.7
[2025-04-12 22:14] VITALS: BP 104/59; PULSE 68; RESP 16; TEMP 36.8; O2SAT 97
[2025-04-13] MEDS: HYDROcodone-acetaminophen 5-325 mg Tablet PO ×3 (03:22→11:57)
[2025-04-13 04:58] VITALS: BP 140/89; PULSE 63; RESP 17; TEMP 36.8; O2SAT 99
[2025-04-13] MEDS: PRENATAL VIT NO.130/IRON/FOLIC 1 EACH TABLET PO (12:01)
[2025-04-13 13:45] VITALS: BP 131/75; PULSE 97; RESP 18; TEMP 36.6; O2SAT 98
--- NOTE | 2025-05-02 20:54 | PM.OBGYDC ---
Discharge Providers [employer] Date of Admission: 04/11/25 05:06 Date of Discharge: 05/02/25 Attending Provider at Admission: Juan J Hernandez MD Attending Provider at Discharge: Juan J Hernandez MD Diagnoses at Discharge Discharge Diagnosis 1. S/P primary low transverse : 2. Hx of section: 3. Smoker in home: Reason for Visit Reason for Visit: OBgyn Updated 04/07/2025 Hospital Course Hospital Course Pre-op diagnosis: 39wk, hx CS, smoker,hx of preeclampsia Post-op diagnosis: Same Post-op findings: BG,7lbs, 8/9 Procedure done: Repeat LTCS Surgeon: Juan J Hernandez MD Anesthesia: Spinal Estimated blood loss: 450ml Complications: None Findings: Thin low uterine segment Procedure: PREOPERATIVE DIAGNOSES: 1. Intrauterine at 39 weeks. 2. Repeat CS 3. Smoker 4. Hx preeclampsia 5. BMI 38 POSTOPERATIVE DIAGNOSES: Same OPERATION PERFORMED: Repeat low transverse section . SURGEON: Juan J Hernandez MD ANESTHESIA: Spinal anesthesia. COMPLICATIONS: None. ESTIMATED BLOOD LOSS: 450 mL. URINE OUTPUT: clear, non bloody IV Ab prophylaxis verbal order of Ancef 2 gram IV. Recovered after surgery wo complications Information Peripartum Data: Infant Delivery Method: Physical Exam Urinary Catheter Management: Ta Latex Free: Cath Placed During This Visit: yes, but has since been removed by the nurse Reason for Continuing Indwelling Catheter: Decision to DC Catheter Urinary Catheter Date of Insertion: 04/11/25 Urinary Catheter Time of Insertion: 07:12 Date Urinary Catheter Removed: 04/11/25 Time Urinary Catheter Discontinued: 18:45 History History History 4 Term 1 3 Miscarriages/Ectopic 0 Living Children 4 Discharge Data Studies Completed and Pending Laboratory Results WBC 6.81 10^3/uL (3.29-11.43) 04/11/25 21:00 RBC 3.35 10^6/uL (3.85-5.65) L 04/11/25 21:00 Hgb 9.60 g/dL (11.27-16.99) L 04/11/25 21:00 Hct 29.0 % (36-47) L 04/11/25 21:00 MCV 86.6 fl (85-98) 04/11/25 21:00 MCH 28.7 pg (27-33) 04/11/25 21:00 MCHC 33.1 g/dL (30-55) 04/11/25 21:00 RDW 14.7 % (12.1-15.1) 04/11/25 21:00 Plt Count 135 10^3/cmm (157-399) L 04/11/25 21:00 MPV 10.6 fL (7.4-10.4) H 04/11/25 21:00 Neut % (Auto) 67.1 % 04/11/25 05:30 Lymph % (Auto) 24.3 % 04/11/25 05:30 Burnet % (Auto) 5.7 % 04/11/25 05:30 Eos % (Auto) 1.7 % 04/11/25 05:30 Baso % (Auto) 0.3 % 04/11/25 05:30 Neut # (Auto) 6.52 10^3/uL (1.8-7.7) 04/11/25 05:30 Lymph # (Auto) 2.4 10^3/uL (0.8-4.8) 04/11/25 05:30 Burnet # (Auto) 0.6 10^3/uL (0.2-0.9) 04/11/25 05:30 Eos # (Auto) 0.2 10^3/uL (0.0-0.8) 04/11/25 05:30 Baso # (Auto) 0.0 10^3/uL (0.0-0.1) 04/11/25 05:30 Nucleated RBC % (auto) 0 % 04/11/25 05:30 Nucleated RBCs # 0.0 /100WBC 04/11/25 05:30 Blood Type B Positive 04/11/25 05:30 Rho(D) Type Rh positive 04/11/25 05:30 Antibody Screen Negative 04/11/25 05:30 Vitals Last Vital Signs Temp 97.9 F 04/13/25 13:45 Pulse 97 04/13/25 13:45 Resp 18 04/13/25 13:45 BP 131/75 04/13/25 13:45 Pulse Ox 98 04/13/25 13:45 O2 Del Method Room Air 04/13/25 04:58 Results Labs OB ([facility]): Obstetrics US 03/10/25 Blood Type B Positive 04/11/25 Antibody Screen Negative 04/11/25 Hct, (36-47) 29.0 % L 04/11/25 Hgb, (11.27-16.99) 9.60 g/dL L 04/11/25 Rho(D) Type Rh positive 04/11/25 Plt Count, (157-399) 135 10^3/cmm L 04/11/25 Hep Bs Antigen, (Nonreactive) Non-reactive 10/02/24 Hep B Core Total Ab, (Nonreactive) Non-reactive 01/30/24 Hep Bs Antibody, (11.5-1000) < 3.5 L 01/30/24 Hepatitis C Antibody, (Nonreactive) Non-reactive 10/02/24 Rubella IgG Antibody, (0.0-10.0) 85.2 IU/mL H 10/02/24 RPR, (Nonreactive) Nonreactive 10/02/24 HIV 1&2 Ab & HIV 1 Ag, (Non-Reactiv) Non-reactive 10/02/24 TSH, (0.27-4.20) 1.33 uIU/mL 10/02/24 Glucose 1 Hr 50 gm, (85-140) 147 mg/dL H 01/30/25 Gest Glucose Tolerance mg/dL 02/04/25 Ser , Semi-Qnt 23890.00 mIU/mL 10/31/24 HCG, Qual, (Negative) Positive H 08/26/24 Urine Opiates Screen, (Negative) Negative ng/mL 10/02/24 Ur Barbiturates Screen, (Negative) Negative ng/mL 10/02/24 Ur Phencyclidine Scrn, (Negative) Negative ng/mL 10/02/24 Ur Amphetamines Screen, (Negative) Negative ng/mL 10/02/24 U Benzodiazepines Scrn, (Negative) Negative ng/mL 10/02/24 Urine Cocaine Screen, (Negative) Negative ng/mL 10/02/24 U Marijuana (THC) Screen, (Negative) Negative ng/mL 10/02/24 Micro Urine Specimen 10/02/24 Pap Smear Interpret See note A 07/23/24 Discharge Plan Discharge Patient Disposition: Home Condition: Stable Prescriptions: New acetaminophen 325 mg Tablet 650 mg PO Q6H PRN (Reason: Mild Pain or Temp >100.4) Qty: 30 0RF ibuprofen 800 mg Tablet 800 mg PO Q8H PRN (Reason: Mild To Moderate Pain) Qty: 10 0RF nicotine 21 mg/24 hr Patch 24 Hour 1 patch transdermal DAILY Qty: 15 1RF docusate sodium 100 mg Capsule 100 mg PO BID Qty: 20 0RF Vitamin 27 mg iron- 800 mcg Tablet 1 tab PO DAILY Qty: 60 1RF Continued famotidine [Pepcid] 20 mg tablet 20 mg PO BID Qty: 60 2RF Rx Instructions: take twice daily Discontinued Classic 28 mg iron- 800 mcg tablet 1 tab PO DAILY Qty: 90 3RF Rx Instructions: take one tab daily No Action oxycodone-acetaminophen [Percocet] 5-325 mg tablet 1 tab PO Q8H PRN (Reason: pain) 10 Days Qty: 30 0RF Discharge Order = DC NOW: Discharge Order (Routine); Ordered 04/13/25 Ordered By: Juan J Hernandez Referrals: Charles Gilmore MD [Physician, [employer]] - 04/16/25 10:00 am Discharge Diet: Regular Discharge Activity: Increase activity as tolerated and Limit activity as instructed Patient Instructions: Acetaminophen (By mouth), Ibuprofen (By mouth), Vitamins (By mouth), Laxative, Stool Softeners (By mouth), Nicotine (Absorbed through the skin), Depression (DC), Bleeding (DC), Preeclampsia and Eclampsia After Delivery (GEN), Hemorrhage (DC), OB Abdominal Surgery - [facility], OB [facility], OB Discharge Report, OB Food/Drug Interaction Guide, OB Care at Home, OB Home Care, OB [facility] Parent Packet, Patient Portal & Carmine Instructions, Abnormal Bleeding Activity Restrictions/Additional Instructions: Pelvic rest 6 wks No lifting or exercising Assessment: Patient reports feeling well. Incision pain is well-controlled with and NSAIDs. Patient is afebrile with no chills. Lochia is normal. Patient is voiding without difficulty and is able to ambulate without assistance. Patient tolerating regular diet and denies nausea or vomiting. She is passing gas. Low transverse section incision dry not bleeding and without signs of infections. Patient's vital signs are stable with normal BPs. heart: regular rhythm, lungs: clear bilaterally, abdomen: fundus is firm at level of the umbilicus. Soft and nondistended. Extremities: No calf pain. 29-year-old day 2 post repeat section, uncomplicated. Low uterine segment before uterine incision very thin and translucent. Uncomplicated recovery course. Patient is ready to be discharged home with instructions for follow-up wound care and . Plan of Treatment: Discharge home today with instructions of notifying if fever increased bleeding or pain. Activity restrictions including 6 weeks pelvic rest and no exercising or lifting more than 10 pounds. Return to clinic in 1 week for wound check. Patient using nicotine patch prescription sent. Discharge Attestations [employer] Time Spent in Discharge Care*: greater than 30 min Coding Level of Care Code Acute Code for Chg Fwd Diagnoses S/P primary low transverse Z98.891 Hx of section Z98.891 Smoker in home Z77.22
== END 2025-04-13 13:56 | disposition home or self-care (01) | DRG 788 ==
PROVIDERS: Admitting Provider Obstetrics & Gynecology; Visit Provider Obstetrics & Gynecology
PROC: (CPT 59514; principal; 2025-04-11 07:00)
DX: O34.211 Maternal care for low transverse scar from previous cesarean delivery (principal); N85.8 Other specified noninflammatory disorders of uterus; O99.334 Smoking (tobacco) complicating childbirth; Z3A.39 39 weeks gestation of pregnancy; Z37.0 Single live birth; Z72.0 Tobacco use
CPT/HCPCS: 12345; 36415; 51702; 59409; 85025; 85027; 86850; 86900; 96374; 96376; J0131; J1200; J1885; J2274; J2371; J2405; J2765; J3010; J3490; J7030; J9999

== ENCOUNTER → 2025-04-16 11:02 | Outpatient (BNVA) | payer MEDICAID, SELFPAY | PROVIDERS: Visit Provider Obstetrics & Gynecology | DX: Z98.891 History of uterine scar from previous surgery (principal) | CPT/HCPCS: 84315 ==